=== PATIENT | female | born 1950 | race African-American/Black ===

== ENCOUNTER 2021-10-29 14:19 | Emergency (ER) | payer MEDICARE ==
[~2021-10-29] VITALS: Ht 157 cm; Wt 91.0 kg
--- NOTE | 2021-10-29 14:55 | ED General ---
General Chief Complaint: Medical Screening Exam Stated Complaint: AMS - POSSIBLE STOKE Source of Information: Patient, Family (granddaughter) Exam Limitations: Physical Impairments (dementia) History of Present Illness Date Seen by Provider: Oct 29, 2021 Time Seen by Provider: 14:30 Initial Comments Patient is here visiting her granddaughter from [facility]. She did not bring her medications. She has a history of dementia. Granddaughter is present for HPI, review of systems, past medical family and social history. Granddaughter states that her grandmother is at her normal mental baseline. She has not had any recent complaints of illness. No COVID concerns, she is COVID vaccinated. She has not eaten today and states that she is really not hungry. She denies diarrhea or dysuria. No shortness of breath or swelling. They are basically here just for refill of her medications. She feels that [facility] in [place]. She is on Lantus 14 units a day, metformin 500 mg twice daily, atorvastatin 40 mg daily. She also has a picture of a prescription bottle of lisinopril hydrochlorothiazide but I am unable to see the milligrams strength. I did call Laureen here locally in [place] and have them access the [employer] system but they could not find a lisinopril hydrochlorothiazide prescription. I am going to go ahead and put her on the lowest dose of hydrochlorothiazide. Granddaughter is happy with this. Grandmother does at 1 point state that "I have a snake in my belly" and she tells me "my brother put it in there a long time ago and I need to have an x-ray of it". She also states "I need to get it out". I did inquire of the granddaughter if this is normal behavior and she states yes, indeed it is normal behavior. Associated Systoms: Denies Symptoms Allergies and Home Medications Patient Home Medication List Home Medication List Reviewed: Yes Review of Systems Review of Systems Constitutional: see HPI EENTM: no symptoms reported Respiratory: no symptoms reported Cardiovascular: no symptoms reported Gastrointestinal: other ("snake in my belly") Genitourinary: no symptoms reported Musculoskeletal: no symptoms reported Skin: no symptoms reported All Other Systems Reviewed Negative Unless Noted: Yes Past Tmzvpme-Wmgzdf-Qxqwhi Hx Immunizations Up To Date Influenza Vaccine Up-to-Date: Yes; Up-to-Date Physical Exam Vital Signs Vital Signs - First Documented 10/29/21 14:24 Temp 36.3 Pulse 75 Resp 18 Pulse Ox 98 O2 Delivery Room Air Capillary Refill : Height, Weight, BMI Height: '" Weight: lbs. oz. kg; BMI Method: General Appearance: No Apparent Distress, WD/WN Eyes: Bilateral Eye Normal Inspection, Bilateral Eye PERRL, Bilateral Eye EOMI Neck: Normal Inspection Respiratory: Lungs Clear, Normal Breath Sounds, No Accessory Muscle Use, No Respiratory Distress Cardiovascular: Regular Rate, Rhythm Gastrointestinal: Normal Bowel Sounds, Non Tender, Soft Extremity: Normal Capillary Refill, Normal Inspection, Normal Range of Motion Neurologic/Psychiatric: Alert, No Motor/Sensory Deficits, Normal Mood/Affect Skin: Normal Color, Warm/Dry Progress/Results/Core Measures Suspected Sepsis SIRS Temperature: Pulse: Respiratory Rate: Blood Pressure / Mean: Results/Orders Lab Results Laboratory Tests Test 10/29/21 14:27 Range/Units Glucometer 107 70-110 MG/DL My Orders Orders - NGHIA PARK MD Accucheck Stat ONCE (10/29/21 14:57) Vital Signs/I&O 10/29/21 14:24 Temp 36.3 Pulse 75 Resp 18 B/P (MAP) Pulse Ox 98 O2 Delivery Room Air Capillary Refill : Point of Care Testing Finger Stick Blood Glucose: 107 Departure Impression Primary Impression: Medication refill Disposition: 01 HOME, SELF-CARE Condition: Stable Departure-Patient Inst. Referrals: [facility],LOCAL PHYSICIAN (PCP) Primary Care Physician Patient Instructions: NO INSTRUCTIONS GIVEN Add. Discharge Instructions: I have refilled your prescriptions for Lantus insulin, metformin, atorvastatin and your blood pressure pill. Please take these as instructed on the bottle. Please return to the emergency department for any new, concerning or emergent complaints. Scripts Lisinopril/Hydrochlorothiazide (Lisinopril-Hctz 10-12.5 mg Tab) 10 Mg-12.5 Mg Tablet 1 EACH PO DAILY for 30 Days, #30 TAB 1 Refill Prov: NGHIA PARK MD 10/29/21 Atorvastatin Calcium (Atorvastatin Calcium) 40 Mg Tablet 40 MG PO DAILY for 30 Days, #30 TAB 1 Refill Prov: NGHIA PARK MD 10/29/21 Metformin HCl (Metformin HCl) 500 Mg Tablet 500 MG PO BID, #60 TAB 1 Refill Prov: NGHIA PARK MD 10/29/21 Insulin Glargine,Hum.rec.anlog (Lantus) 100 Unit/Ml Vial 14 UNIT SQ DAILY for 30 Days, #1 EA 1 Refill Prov: NGHIA PARK MD 10/29/21 NGHIA PARK MD Oct 29, 2021 14:55
[2021-10-29] MEDS ORDERED: ATOR40TA70 PO (15:04)
[2021-10-29] MEDS ORDERED: LISI1TAB44 PO (15:04)
[2021-10-29] MEDS ORDERED: INSU100V6 SQ (15:04)
[2021-10-29] MEDS ORDERED: METF-397 PO (15:04)
[2021-10-29 15:40] VITALS: BP 147/84
== END 2021-10-29 15:42 | disposition home or self-care (01) ==
LOC: ER 14:23
DX: Z76.0 Encounter for issue of repeat prescription (principal); Z79.84 Long term (current) use of oral hypoglycemic drugs; Z79.899 Other long term (current) drug therapy
CPT/HCPCS: 82947

== ENCOUNTER 2021-11-01 11:24 | Emergency (ER) | payer MEDICARE ==
[~2021-11-01] VITALS: Ht 157.4 cm; Wt 90.7 kg
[~2021-11-01 11:24] MED LIST: ATOR40TA70 PO; INSU100V6 SQ; LISI1TAB44 PO; METF-397 PO
--- NOTE | 2021-11-01 11:49 | ED GU-Female ---
General Chief Complaint: - Reproductive Stated Complaint: BURNING WITH URINATION Nursing Triage Note: PT AMB TO RM 8 WITH GRANDDAUGHTER. PTS GRANDDAUGTHER STATED THAT SHE WAS HAVING DIFFICULTY URINATING AND FREQUENCY THAT STARTED A COUPLE DAYS AGO. Source: patient Exam Limitations: no limitations History of Present Illness Date Seen by Provider: Nov 01, 2021 Time Seen by Provider: 11:46 Initial Comments Patient is a 70-year-old female with a history of diabetes, stroke, COPD presents to ED for difficulty urinating with increased urine frequency. Daughter at bedside noted a odor to her urine. She does have a history of dementia and bipolar. She believes she is at her current baseline. She appears slightly confused and states that she has a snake in her body that she wants out. She denies of any chest pain, vomiting, diarrhea, fever, chills, increased confusion. She does report some abdominal discomfort on arrival. Daughter requesting a DuoNeb breathing machine for at home as hers did break. She is also requesting canisters for her COPD Allergies and Home Medications Allergies Coded Allergies: No Known Drug Allergies (Unverified , 11/01/21) Patient Home Medication List Home Medication List Reviewed: Yes Atorvastatin Calcium (Atorvastatin Calcium) 40 Mg Tablet, 40 MG PO DAILY Prescribed by: NGHIA PARK on 10/29/21 1504 Fluconazole (Diflucan) 150 Mg Tablet, 150 MG PO ONCE Prescribed by: MARIAN ARIAS on 11/01/21 1305 Insulin Glargine,Hum.rec.anlog (Lantus) 100 Unit/Ml Vial, 14 UNIT SQ DAILY Prescribed by: NGHIA PARK on 10/29/21 1504 Ipratropium/Albuterol Sulfate (Iprat-Albut 0.5-3(2.5) mg/3 ml) 0.5 Mg-3 Mg (2.5 Mg Base)/3 Ml Ampul.neb, 3 ML IH Q4H PRN for SHORTNESS OF BREATH Prescribed by: MARIAN ARIAS on 11/01/21 1305 Lisinopril/Hydrochlorothiazide (Lisinopril-Hctz 10-12.5 mg Tab) 10 Mg-12.5 Mg Tablet, 1 EACH PO DAILY Prescribed by: NGHIA PARK on 10/29/21 1504 Metformin HCl (Metformin HCl) 500 Mg Tablet, 500 MG PO BID Prescribed by: NGHIA PARK on 10/29/21 1504 Review of Systems Review of Systems Constitutional: No chills, No diaphoresis, No malaise, No weakness EENTM: No blurred vision, No double vision, No mouth pain, No mouth swelling Respiratory: No cough, No dyspnea on exertion, No short of breath, No wheezing Cardiovascular: No chest pain, No edema Gastrointestinal: abdominal pain; No diarrhea, No nausea, No vomiting Genitourinary: burning, frequency, other (Odor) Musculoskeletal: No back pain, No joint pain Skin: No change in color, No change in hair/nails Psychiatric/Neurological: Other (Confusion) Past Ecuanaw-Ulrbwk-Vutgof Hx Patient Social History Tobacco Use?: No Smoking Status: Former Smoker Substance use?: No Alcohol Use?: No Pt feels they are or have been: Unable to obtain Immunizations Up To Date Influenza Vaccine Up-to-Date: Yes; Up-to-Date Physical Exam Vital Signs Vital Signs - First Documented 11/01/21 11:31 Temp 36.2 Pulse 77 Resp 14 B/P (MAP) 187/116 (139) Pulse Ox 95 Capillary Refill : Less Than 3 Seconds Height, Weight, BMI Height: '" Weight: lbs. oz. kg; 36.00 BMI Method: General Appearance: WD/WN, no apparent distress HEENT: PERRL/EOMI, normal ENT inspection, TMs normal, pharynx normal Neck: non-tender, full range of motion, supple, normal inspection Cardiovascular: regular rate, rhythm, no edema, no gallop, no JVD Respiratory: chest non-tender, lungs clear, normal breath sounds, no respiratory distress, no accessory muscle use Gastrointestinal: normal bowel sounds, non tender, soft, no organomegaly Back: normal inspection, no CVA tenderness, no vertebral tenderness Extremities: normal range of motion, non-tender, normal inspection, no pedal edema Neurologic/Psychiatric: residential sales II-XII nml as tested, no motor/sensory deficits, other (Disoriented X 2) Skin: normal color, warm/dry Progress/Results/Core Measures Suspected Sepsis SIRS Temperature: Pulse: 77 Respiratory Rate: 14 Blood Pressure 187 /116 Mean: 139 Results/Orders Lab Results Laboratory Tests Test 11/01/21 12:48 Range/Units Urine Color YELLOW Urine Clarity CLEAR Urine pH 5.5 5-9 Urine Specific [place] 1.015 L 1.016-1.022 Urine Protein NEGATIVE NEGATIVE Urine Glucose (UA) NEGATIVE NEGATIVE Urine Ketones NEGATIVE NEGATIVE Urine Nitrite NEGATIVE NEGATIVE Urine Bilirubin NEGATIVE NEGATIVE Urine Urobilinogen 0.2 < = 1.0 MG/DL Urine Leukocyte Esterase NEGATIVE NEGATIVE Urine RBC (Auto) TRACE-L H NEGATIVE Urine RBC RARE /HPF Urine WBC RARE /HPF Urine Squamous Epithelial Cells 0-2 /HPF Urine Crystals PRESENT H /LPF Urine Amorphous Sediment RARE RUTHANN URATES H /LPF Urine Bacteria NEGATIVE /HPF Urine Casts NONE /LPF Urine Mucus NEGATIVE /LPF Urine Culture Indicated NO My Orders Orders - KEYSHA FLORES Urinalysis (11/01/21 11:25) Vital Signs/I&O 11/01/21 11:31 Temp 36.2 Pulse 77 Resp 14 B/P (MAP) 187/116 (139) Pulse Ox 95 Capillary Refill : Less Than 3 Seconds Blood Pressure Mean: 139 Departure Communication (PCP) Patient presents ED with daughter concern for UTI or yeast infection. No vaginal discharge or vaginal itching. Urinalysis without strong evidence of UTI. History of yeast secondary to her diabetes. Will discharge 1 dose with oral Diflucan. Discussed [id number] topical monistat if continued presentation of symptoms. She is requesting DuoNeb canisters as well as a new nebulizer machine. This was provided. Outpatient follow-up with her primary care physician. She does not appear toxic. No increased confusion. She does have a history of dementia and bipolar and daughter states she is at her current baseline. She has no other complaints. Return precaution were discussed with daughter. Impression Primary Impression: Medication refill Disposition: 01 HOME, SELF-CARE Condition: Stable Departure-Patient Inst. Decision time for Depature: 13:04 Referrals: [facility] [place] RODRIGO,LOCAL PHYSICIAN (PCP) Primary Care Physician Patient Instructions: Yeast Infection (DC) Scripts Fluconazole (Diflucan) 150 Mg Tablet 150 MG PO ONCE, #1 TAB Prov: KEYSHA FLORES 11/01/21 Ipratropium/Albuterol Sulfate (Iprat-Albut 0.5-3(2.5) mg/3 ml) 0.5 Mg-3 Mg (2.5 Mg Base)/3 Ml Ampul.neb 3 ML IH Q4H PRN for SHORTNESS OF BREATH, #30 EACH Prov: KEYSHA FLORES 11/01/21 KEYSHA FLORES Nov 01, 2021 11:49
[2021-11-01 12:55] LABS: BILIRUBIN,URINE NEGATIVE (NEGATIVE); CLARITY,URINE CLEAR; COLOR,URINE YELLOW; GLUCOSE, URINE (UA) NEGATIVE (NEGATIVE); KETONES,URINE NEGATIVE (NEGATIVE); LEUKOCYTE ESTERASE ,URINE NEGATIVE (NEGATIVE); NITRITE,URINE NEGATIVE (NEGATIVE); PH,URINE 5.5 (5-9); PROTEIN,URINE NEGATIVE (NEGATIVE)
[2021-11-01 13:01] LABS: RBC,URINE RARE /HPF; WBC,URINE RARE /HPF
[2021-11-01 13:02] LABS: AMORPHOUS SEDIMENT,UR RARE AMOR URATES /LPF; BACTERIA,URINE NEGATIVE /HPF; SQUAMOUS EPITHELIAL CELL,UR 0-2 /HPF
[2021-11-01] MEDS ORDERED: IPRA3AMP31 IH (13:05)
[2021-11-01] MEDS ORDERED: FLUC150T PO (13:05)
[2021-11-01 13:15] VITALS: BP 165/81
== END 2021-11-01 13:15 | disposition home or self-care (01) ==
LOC: EDUNIT# 11:24 → ER 11:25
DX: Z76.0 Encounter for issue of repeat prescription (principal); J44.9 Chronic obstructive pulmonary disease, unspecified; Z87.891 Personal history of nicotine dependence; Z99.89 Dependence on other enabling machines and devices
CPT/HCPCS: 81000; 99281

== ENCOUNTER 2021-12-06 11:18 | Emergency (ER) | payer MEDICARE ==
[~2021-12-06] VITALS: Ht 157 cm; Wt 91.0 kg
[~2021-12-06 11:18] MED LIST changes: +FLUC150T PO; +IPRA3AMP31 IH
--- NOTE | 2021-12-06 12:24 | ED General ---
General Chief Complaint: General Problems/Pain Stated Complaint: PSYCH EVAL/NEEDS MEDS Nursing Triage Note: PT AMB TO FT1 W GRAND DAUGHTER WHO PT LIVES WITH. GRAND DAUGHTER STATES PT HAS INCREASING CONFUSION, NOT SLEEPING AT NIGHT FOR SEVERAL DAYS, DECREASING COOPERATION. PT HAS HAD RECENT STROKE APPROX 3 MONTHS AGO, PT HAS RECENTLY MOVED TO [facility] FROM [place] TO STAY W GRAND DAUGHTER. PT IS IDDM, HAS ASHTMA, STROKES X3, DEMENTIA, HTN AND DEMENTIA. PT STATES DOES NOT KNOW WHY SHE IS HERE. DOES NOT UNDERSTAND WHY SHE IS HERE FOR EVALUATION. PT DOES HAVE PERSISTANT COUGH AND CONGESTION Source of Information: Patient Exam Limitations: No Limitations History of Present Illness Date Seen by Provider: Dec 06, 2021 Time Seen by Provider: 12:22 Initial Comments This is a 71-year-old female who presented to the ER with her granddaughter for increasing confusion, physical aggression, insomnia, paranoid delusions that her granddaughter's boyfriend is "watching her" and's "touching her". Granddaughter states that her boyfriend is at work on 12 hour shifts and not at home when patient is making complaints. Allergies and Home Medications Allergies Coded Allergies: No Known Drug Allergies (Unverified , 11/01/21) Patient Home Medication List Atorvastatin Calcium (Atorvastatin Calcium) 40 Mg Tablet, 40 MG PO DAILY Prescribed by: NGHIA PARK on 10/29/21 1504 Fluconazole (Diflucan) 150 Mg Tablet, 150 MG PO ONCE Prescribed by: MARIAN ARIAS on 11/01/21 1305 Insulin Glargine,Hum.rec.anlog (Lantus) 100 Unit/Ml Vial, 14 UNIT SQ DAILY Prescribed by: NGHIA PARK on 10/29/21 1504 Ipratropium/Albuterol Sulfate (Iprat-Albut 0.5-3(2.5) mg/3 ml) 0.5 Mg-3 Mg (2.5 Mg Base)/3 Ml Ampul.neb, 3 ML IH Q4H PRN for SHORTNESS OF BREATH Prescribed by: MARIAN ARIAS on 11/01/21 1305 Lisinopril/Hydrochlorothiazide (Lisinopril-Hctz 10-12.5 mg Tab) 10 Mg-12.5 Mg Tablet, 1 EACH PO DAILY Prescribed by: NGHIA PARK on 10/29/21 1504 Metformin HCl (Metformin HCl) 500 Mg Tablet, 500 MG PO BID Prescribed by: NGHIA PARK on 10/29/21 1504 Past Lzunmgg-Rbalvs-Bkfmzu Hx Patient Social History Tobacco Use?: No Substance use?: No Alcohol Use?: No Pt feels they are or have been: No Immunizations Up To Date First/Initial COVID19 Vaccinat: 2020 Second COVID19 Vaccination Christian: 2020 Past Medical History Surgery/Hospitalization HX: ABD SURG, IDDM, HTN, ASTHMA, RECENT STROKE IN SEPTEMBER. DEMENTIA, SCHIZOPHRENIA Physical Exam Vital Signs Vital Signs - First Documented 12/06/21 11:25 Temp 36.6 Pulse 77 Resp 19 B/P (MAP) 165/75 (105) Pulse Ox 97 Capillary Refill : Less Than 3 Seconds Height, Weight, BMI Height: '" Weight: lbs. oz. kg; 36.00 BMI Method: Progress/Results/Core Measures Suspected Sepsis SIRS Temperature: Pulse: 77 Respiratory Rate: 19 Laboratory Tests 12/06/21 12:25: White Blood Count 8.8 Blood Pressure 165 /75 Mean: 105 Laboratory Tests 12/06/21 12:25: Creatinine 0.89, Platelet Count 207, Total Bilirubin 1.1H Results/Orders Lab Results Laboratory Tests Test 12/06/21 12:25 12/06/21 12:26 12/06/21 12:36 Range/Units White Blood Count 8.8 4.3-11.0 10^3/uL Red Blood Count 4.03 3.80-5.11 10^6/uL Hemoglobin 11.8 11.5-16.0 g/dL Hematocrit 37 35-52 % Mean Corpuscular Volume 93 80-99 fL Mean Corpuscular Hemoglobin 29 25-34 pg Mean Corpuscular Hemoglobin Concent 32 32-36 g/dL Red Cell Distribution Width 14.7 H 10.0-14.5 % Platelet Count 207 130-400 10^3/uL Mean Platelet Volume 10.7 9.0-12.2 fL Immature Granulocyte % (Auto) 0 % Neutrophils (%) (Auto) 66 42-75 % Lymphocytes (%) (Auto) 22 12-44 % Monocytes (%) (Auto) 5 0-12 % Eosinophils (%) (Auto) 6 0-10 % Basophils (%) (Auto) 0 0-10 % Neutrophils # (Auto) 5.8 1.8-7.8 10^3/uL Lymphocytes # (Auto) 1.9 1.0-4.0 10^3/uL Monocytes # (Auto) 0.5 0.0-1.0 10^3/uL Eosinophils # (Auto) 0.5 H 0.0-0.3 10^3/uL Basophils # (Auto) 0.0 0.0-0.1 10^3/uL Immature Granulocyte # (Auto) 0.0 0.0-0.1 10^3/uL Sodium Level 142 135-145 MMOL/L Potassium Level 4.1 3.6-5.0 MMOL/L Chloride Level 106 98-107 MMOL/L Carbon Dioxide Level 26 21-32 MMOL/L Anion Gap 10 5-14 MMOL/L Blood Urea Nitrogen 22 H 7-18 MG/DL Creatinine 0.89 0.60-1.30 MG/DL Estimat Glomerular Filtration Rate 68 BUN/Creatinine Ratio 25 Glucose Level 146 H 70-105 MG/DL Calcium Level 9.0 8.5-10.1 MG/DL Corrected Calcium 9.2 8.5-10.1 MG/DL Total Bilirubin 1.1 H 0.1-1.0 MG/DL Aspartate Amino Transf (AST/SGOT) 57 H 5-34 U/L Alanine Aminotransferase (ALT/SGPT) 70 H 0-55 U/L Alkaline Phosphatase 148 H 40-136 U/L Total Protein 7.3 6.4-8.2 GM/DL Albumin 3.7 3.2-4.5 GM/DL TSH Emery Testing 0.44 0.35-4.94 UIU/ML Salicylates Level < 5.0 L 5.0-20.0 MG/DL Acetaminophen Level < 10 L 10-30 UG/ML Serum Alcohol < 10 <10 MG/DL Influenza Type A (RT-PCR) Not Detected Not Detecte Influenza Type B (RT-PCR) Not Detected Not Detecte SARS-CoV-2 RNA (RT-PCR) Not Detected Not Detecte Urine Color YELLOW Urine Clarity CLEAR Urine pH 5.0 5-9 Urine Specific [place] >=1.030 1.016-1.022 Urine Protein NEGATIVE NEGATIVE Urine Glucose (UA) NEGATIVE NEGATIVE Urine Ketones NEGATIVE NEGATIVE Urine Nitrite NEGATIVE NEGATIVE Urine Bilirubin NEGATIVE NEGATIVE Urine Urobilinogen 0.2 < = 1.0 MG/DL Urine Leukocyte Esterase NEGATIVE NEGATIVE Urine RBC (Auto) NEGATIVE NEGATIVE Urine RBC NONE /HPF Urine WBC 0-2 /HPF Urine Squamous Epithelial Cells 5-10 /HPF Urine Crystals NONE /LPF Urine Bacteria TRACE /HPF Urine Casts NONE /LPF Urine Mucus NEGATIVE /LPF Urine Culture Indicated NO Urine Opiates Screen NEGATIVE NEGATIVE Urine Oxycodone Screen NEGATIVE NEGATIVE Urine Methadone Screen NEGATIVE NEGATIVE Urine Propoxyphene Screen NEGATIVE NEGATIVE Urine Barbiturates Screen NEGATIVE NEGATIVE Ur Tricyclic Antidepressants Screen NEGATIVE NEGATIVE Urine Phencyclidine Screen NEGATIVE NEGATIVE Urine Amphetamines Screen NEGATIVE NEGATIVE Urine Methamphetamines Screen NEGATIVE NEGATIVE Urine Benzodiazepines Screen NEGATIVE NEGATIVE Urine Cocaine Screen NEGATIVE NEGATIVE Urine Cannabinoids Screen NEGATIVE NEGATIVE My Orders Orders - SHIREEN HERRERA MEDICAL BILLING ASSOCIATE Ua Culture If Indicated (12/06/21 11:59) Cbc With Automated Diff (12/06/21 11:59) Comprehensive Metabolic Panel (12/06/21 11:59) Alcohol (12/06/21 11:59) Drug Screen Stat (Urine) (12/06/21 11:59) Acetaminophen (12/06/21 11:59) Salicylate (12/06/21 11:59) Ekg Tracing (12/06/21 11:59) Thyroid Analyzer (12/06/21 11:59) Covid 19 Inhouse Test (12/06/21 11:59) Influenza A And B By Pcr (12/06/21 11:59) Humerus, Right, 2 Views (12/06/21 12:18) Vital Signs/I&O 12/06/21 11:25 Temp 36.6 Pulse 77 Resp 19 B/P (MAP) 165/75 (105) Pulse Ox 97 Capillary Refill : Less Than 3 Seconds Blood Pressure Mean: 105 Departure Impression Primary Impression: Dementia with behavioral disturbance Additional Impressions: Paranoid delusion Tactile hallucination Departure-Patient Inst. Decision time for Depature: 13:35 Referrals: NO,LOCAL PHYSICIAN (PCP/Family) Primary Care Physician Patient Instructions: Dementia (DC) Add. Discharge Instructions: Plan: 1. Follow-up with [facility] behavioral health tomorrow. You will call [phone] and speak with someone about intake. 2. We will plan for you to set up a place and time to have patient screened for inpatient geriatric behavioral health. 3. May trial Melatonin 5 mg by mouth around dinnertime to see if this will improve some of her insomnia this evening. May also give her Tylenol PM at bedtime. 4. You have been given copies of your labs and imaging from this ER visit. You will need to take copies of your medical DPOA as well as insurance cards and licensing ID with you to your appointment tomorrow. 5. If you have any new, concerning, worsening symptoms before your follow-up please return to the ER. All discharge instructions reviewed with patient and/or family. Voiced understanding. SHIREEN HERRERA MEDICAL BILLING ASSOCIATE Dec 06, 2021 12:24
[2021-12-06 12:32] LABS: BASOPHILS % (AUTO) 0 % (0-10); EOSINOPHILS # (AUTO) 0.5 10^3/uL (0.0-0.3); EOSINOPHILS % (AUTO) 6 % (0-10); HEMATOCRIT 37 % (35-52); HEMOGLOBIN 11.8 g/dL (11.5-16.0); LYMPHOCYTES # (AUTO) 1.9 10^3/uL (1.0-4.0); LYMPHOCYTES % (AUTO) 22 % (12-44); MEAN CORPUSCULAR HEMOGLOBIN 29 pg (25-34); MEAN CORPUSCULAR HGB CONC 32 g/dL (32-36); MEAN CORPUSCULAR VOLUME 93 fL (80-99); MEAN PLATELET VOLUME 10.7 fL (9.0-12.2); MONOCYTES # (AUTO) 0.5 10^3/uL (0.0-1.0); MONOCYTES % (AUTO) 5 % (0-12); NEUTROPHILS # (AUTO) 5.8 10^3/uL (1.8-7.8); NEUTROPHILS % (AUTO) 66 % (42-75); PLATELET COUNT 207 10^3/uL (130-400); WHITE BLOOD COUNT 8.8 10^3/uL (4.3-11.0)
[2021-12-06 12:41] LABS: BILIRUBIN,URINE NEGATIVE (NEGATIVE); CLARITY,URINE CLEAR; COLOR,URINE YELLOW; GLUCOSE, URINE (UA) NEGATIVE (NEGATIVE); KETONES,URINE NEGATIVE (NEGATIVE); LEUKOCYTE ESTERASE ,URINE NEGATIVE (NEGATIVE); NITRITE,URINE NEGATIVE (NEGATIVE); PROTEIN,URINE NEGATIVE (NEGATIVE)
[2021-12-06 12:46] LABS: CHLORIDE 106 MMOL/L (98-107); POTASSIUM 4.1 MMOL/L (3.6-5.0); SODIUM 142 MMOL/L (135-145)
[2021-12-06 12:47] LABS: BACTERIA,URINE TRACE /HPF; WBC,URINE 0-2 /HPF
[2021-12-06 12:47] LABS: ALBUMIN 3.7 GM/DL (3.2-4.5)
[2021-12-06 12:49] LABS: GLUCOSE 146 MG/DL (70-105); TOTAL PROTEIN 7.3 GM/DL (6.4-8.2)
[2021-12-06 12:50] LABS: CARBON DIOXIDE 26 MMOL/L (21-32)
[2021-12-06 12:51] LABS: BILIRUBIN,TOTAL 1.1 MG/DL (0.1-1.0)
[2021-12-06 12:53] LABS: ALKALINE PHOSPHATASE 148 U/L (40-136); CREATININE SERUM 0.89 MG/DL (0.60-1.30); GFR ESTIMATED 68
[2021-12-06 12:54] LABS: AMPHETAMINE SCREEN, URINE NEGATIVE (NEGATIVE); BARBITURATE SCREEN URINE NEGATIVE (NEGATIVE); BENZODIAZEPINES SCREEN URINE NEGATIVE (NEGATIVE); CANNABINOID SCREEN, URINE NEGATIVE (NEGATIVE); COCAINE SCREEN URINE NEGATIVE (NEGATIVE); METHADONE STAT NEGATIVE (NEGATIVE); OPIATE SCREEN URINE NEGATIVE (NEGATIVE); OXYCODONE STAT NEGATIVE (NEGATIVE); PROPOXYPHENE STAT NEGATIVE (NEGATIVE); TRICYCLIC ANTIDEPRESSANTS SCRE NEGATIVE (NEGATIVE)
[2021-12-06 12:54] LABS: BUN/CREATININE RATIO 25
[2021-12-06 12:56] LABS: ALANINE AMINOTRANSFERASE 70 U/L (0-55); SALICYLATE < 5.0 MG/DL (5.0-20.0)
[2021-12-06 13:01] LABS: ACETAMINOPHEN < 10 UG/ML (10-30)
--- NOTE | 2021-12-06 13:26 | Diagnostic Imaging Report ---
INDICATION: No known injury, pain. EXAMINATION: Right humerus 12/06/2021. FINDINGS: 2 views of the humerus demonstrate no evidence for fracture or dislocations. Joint spaces maintained. Narrowing and spurring noted at the acromioclavicular joint. Soft tissues unremarkable. IMPRESSION: 1. No acute osseous of abnormality. Dictated by: Dictated on workstation # [id number]
[2021-12-06 13:45] VITALS: BP 145/75
== END 2021-12-06 13:46 | disposition home or self-care (01) ==
LOC: EDUNIT# 11:18 → ER 11:21
DX: F03.91 Unspecified dementia, unspecified severity, with behavioral disturbance (principal); F20.0 Paranoid schizophrenia; Z20.822 Contact with and (suspected) exposure to COVID-19
CPT/HCPCS: 73060; 80053; 80306; 81000; 84443; 85025; 87636; 93005; 99283; G0480 ×3; 36415; 80320; 80329

== ENCOUNTER 2022-01-17 16:03 | Emergency (ER) | payer MEDICARE, MEDICAID ==
[~2022-01-17] VITALS: Ht 157.2 cm; Wt 90.7 kg
--- NOTE | 2022-01-17 16:09 | ED General ---
General Stated Complaint: POSS STROKE Source of Information: Patient Exam Limitations: No Limitations History of Present Illness Date Seen by Provider: Jan 17, 2022 Time Seen by Provider: 15:51 Initial Comments 71-year-old female presents the emergency department today via ambulance. EMS reports the patient states that she was riding in the passenger seat of the vehicle and her left face felt cold. The window was open. She stated when she got into the ambulance her face warmed up and is no longer cold. The patient on arrival does seem a bit confused and tells me the same story. She also tells me her upper lip was swollen at the time and that her legs were shaking bilaterally. She does tell me that she felt like her tongue was heavy during this time which was causing a little bit of difficulty speaking. She does state that she has had some right jaw pain recently from some dental issues. She has history of diabetes mellitus and her blood sugar in route was 231. She states she feels back to normal now. Allergies and Home Medications Allergies Coded Allergies: No Known Drug Allergies (Unverified , 11/01/21) Patient Home Medication List Home Medication List Reviewed: Yes Atorvastatin Calcium (Atorvastatin Calcium) 40 Mg Tablet, 40 MG PO DAILY Prescribed by: NGHIA PARK on 10/29/21 1504 Fluconazole (Diflucan) 150 Mg Tablet, 150 MG PO ONCE Prescribed by: MARIAN ARIAS on 11/01/21 1305 Insulin Glargine,Hum.rec.anlog (Lantus) 100 Unit/Ml Vial, 14 UNIT SQ DAILY Prescribed by: NGHIA PARK on 10/29/21 1504 Ipratropium/Albuterol Sulfate (Iprat-Albut 0.5-3(2.5) mg/3 ml) 0.5 Mg-3 Mg (2.5 Mg Base)/3 Ml Ampul.neb, 3 ML IH Q4H PRN for SHORTNESS OF BREATH Prescribed by: MARIAN ARIAS on 11/01/21 1305 Lisinopril/Hydrochlorothiazide (Lisinopril-Hctz 10-12.5 mg Tab) 10 Mg-12.5 Mg Tablet, 1 EACH PO DAILY Prescribed by: NGHIA PARK on 10/29/21 1504 Metformin HCl (Metformin HCl) 500 Mg Tablet, 500 MG PO BID Prescribed by: NGHIA PARK on 10/29/21 1504 Review of Systems Review of Systems Constitutional: no symptoms reported EENTM: no symptoms reported Respiratory: no symptoms reported Cardiovascular: no symptoms reported Gastrointestinal: no symptoms reported Genitourinary: no symptoms reported Musculoskeletal: no symptoms reported Skin: no symptoms reported Psychiatric/Neurological: No Symptoms Reported Hematologic/Lymphatic: No Symptoms Reported Immunological/Allergic: no symptoms reported Past Sehohig-Cvekez-Vinkew Hx Patient Social History Tobacco Use?: No Use of E-Cig and/or Vaping dev: No Substance use?: No Alcohol Use?: No Immunizations Up To Date First/Initial COVID19 Vaccinat: 2020 Second COVID19 Vaccination Christian: 2020 Past Medical History Surgery/Hospitalization HX: ABD SURG, IDDM, HTN, ASTHMA, RECENT STROKE IN SEPTEMBER. DEMENTIA, SCHIZOPHRENIA Family Medical History Reviewed Nursing Family Hx No Pertinent Family Hx Physical Exam Vital Signs Vital Signs - First Documented 01/17/22 16:03 Pulse 85 B/P (MAP) 154/90 (111) Pulse Ox 96 O2 Delivery Room Air Capillary Refill : Height, Weight, BMI Height: '" Weight: lbs. oz. kg; 36.00 BMI Method: General Appearance: No Apparent Distress, WD/WN HEENT: Normal ENT Inspection, Pharynx Normal Neck: Full Range of Motion, Normal Inspection, Non Tender, Supple Respiratory: Chest Non Tender, Lungs Clear, Normal Breath Sounds, No Accessory Muscle Use, No Respiratory Distress Cardiovascular: Regular Rate, Rhythm, No Edema, No Gallop, No JVD, No Murmur, Normal Peripheral Pulses Gastrointestinal: Normal Bowel Sounds, No Organomegaly, No Pulsatile Mass, Non Tender, Soft Extremity: Normal Capillary Refill, Normal Inspection, Normal Range of Motion, Non Tender, No Calf Tenderness, No Pedal Edema Neurologic/Psychiatric: Alert, Oriented x3, No Motor/Sensory Deficits, Normal Mood/Affect, can patcher II-XII Norm as Tested Skin: Normal Color, Warm/Dry Lymphatic: No Adenopathy Progress/Results/Core Measures Suspected Sepsis SIRS Temperature: Pulse: Respiratory Rate: Laboratory Tests 01/17/22 16:00: White Blood Count 8.2 Blood Pressure / Mean: Laboratory Tests 01/17/22 16:00: Creatinine 0.93, INR Comment 1.1, Platelet Count 205, Total Bilirubin 1.8H Results/Orders Lab Results Laboratory Tests Test 01/17/22 16:00 01/17/22 16:25 Range/Units White Blood Count 8.2 4.3-11.0 10^3/uL Red Blood Count 3.75 L 3.80-5.11 10^6/uL Hemoglobin 11.5 11.5-16.0 g/dL Hematocrit 36 35-52 % Mean Corpuscular Volume 95 80-99 fL Mean Corpuscular Hemoglobin 31 25-34 pg Mean Corpuscular Hemoglobin Concent 32 32-36 g/dL Red Cell Distribution Width 15.5 H 10.0-14.5 % Platelet Count 205 130-400 10^3/uL Mean Platelet Volume 10.1 9.0-12.2 fL Immature Granulocyte % (Auto) 1 % Neutrophils (%) (Auto) 74 42-75 % Lymphocytes (%) (Auto) 17 12-44 % Monocytes (%) (Auto) 5 0-12 % Eosinophils (%) (Auto) 3 0-10 % Basophils (%) (Auto) 0 0-10 % Neutrophils # (Auto) 6.0 1.8-7.8 10^3/uL Lymphocytes # (Auto) 1.4 1.0-4.0 10^3/uL Monocytes # (Auto) 0.4 0.0-1.0 10^3/uL Eosinophils # (Auto) 0.3 0.0-0.3 10^3/uL Basophils # (Auto) 0.0 0.0-0.1 10^3/uL Immature Granulocyte # (Auto) 0.0 0.0-0.1 10^3/uL Prothrombin Time 14.7 12.2-14.7 SEC INR Comment 1.1 0.8-1.4 Sodium Level 142 135-145 MMOL/L Potassium Level 3.2 L 3.6-5.0 MMOL/L Chloride Level 105 98-107 MMOL/L Carbon Dioxide Level 28 21-32 MMOL/L Anion Gap 9 5-14 MMOL/L Blood Urea Nitrogen 16 7-18 MG/DL Creatinine 0.93 0.60-1.30 MG/DL Estimat Glomerular Filtration Rate 65 BUN/Creatinine Ratio 17 Glucose Level 221 H 70-105 MG/DL Calcium Level 8.9 8.5-10.1 MG/DL Corrected Calcium 9.1 8.5-10.1 MG/DL Total Bilirubin 1.8 H 0.1-1.0 MG/DL Aspartate Amino Transf (AST/SGOT) 21 5-34 U/L Alanine Aminotransferase (ALT/SGPT) 26 0-55 U/L Alkaline Phosphatase 99 40-136 U/L Total Protein 7.1 6.4-8.2 GM/DL Albumin 3.7 3.2-4.5 GM/DL Serum Alcohol < 10 <10 MG/DL Urine Color YELLOW Urine Clarity CLEAR Urine pH 5.5 5-9 Urine Specific [place] >=1.030 1.016-1.022 Urine Protein 1+ H NEGATIVE Urine Glucose (UA) NEGATIVE NEGATIVE Urine Ketones NEGATIVE NEGATIVE Urine Nitrite NEGATIVE NEGATIVE Urine Bilirubin NEGATIVE NEGATIVE Urine Urobilinogen 0.2 < = 1.0 MG/DL Urine Leukocyte Esterase NEGATIVE NEGATIVE Urine RBC (Auto) TRACE-I H NEGATIVE Urine RBC NONE /HPF Urine WBC RARE /HPF Urine Squamous Epithelial Cells RARE /HPF Urine Crystals NONE /LPF Urine Bacteria TRACE /HPF Urine Casts PRESENT /LPF Urine Hyaline Casts 2-5 H /LPF Urine Mucus NEGATIVE /LPF Urine Culture Indicated NO Urine Opiates Screen NEGATIVE NEGATIVE Urine Oxycodone Screen NEGATIVE NEGATIVE Urine Methadone Screen NEGATIVE NEGATIVE Urine Propoxyphene Screen NEGATIVE NEGATIVE Urine Barbiturates Screen NEGATIVE NEGATIVE Ur Tricyclic Antidepressants Screen NEGATIVE NEGATIVE Urine Phencyclidine Screen NEGATIVE NEGATIVE Urine Amphetamines Screen NEGATIVE NEGATIVE Urine Methamphetamines Screen NEGATIVE NEGATIVE Urine Benzodiazepines Screen NEGATIVE NEGATIVE Urine Cocaine Screen NEGATIVE NEGATIVE Urine Cannabinoids Screen NEGATIVE NEGATIVE My Orders Orders - RAHEL AMOR DO Ct Head Wo (01/17/22 16:04) Cbc With Automated Diff (01/17/22 16:04) Comprehensive Metabolic Panel (01/17/22 16:04) Protime With Inr (01/17/22 16:04) Alcohol (01/17/22 16:04) Ua Culture If Indicated (01/17/22 16:04) Chest 1 View, Ap/Pa Only (01/17/22 16:04) Drug Screen Stat (Urine) (01/17/22 16:04) Lisinopril Tablet (Zestril Tablet) (01/17/22 17:15) Vital Signs/I&O 01/17/22 01/17/22 16:03 17:44 Pulse 85 79 B/P (MAP) 154/90 (111) 164/82 Pulse Ox 96 96 O2 Delivery Room Air Room Air Capillary Refill : Diagnostic Imaging Diagonstic Imaging: CT Plain Films/CT/US/NM/MRI: head [facility] [place] [place] NAME: KEVIN ASHLEY [facility] REC#: [id number] PT STATUS: REG ER : 1950 PHYSICIAN: RAHEL AMOR DO ADMIT DATE: 01/17/22/ER Signed Date of Exam:01/17/22 CT HEAD WO PROCEDURE: CT head without contrast. TECHNIQUE: Multiple contiguous axial images were obtained through the brain without the use of intravenous contrast. Auto Exposure Controls were utilized during the CT exam to meet ALARA standards for radiation dose reduction. INDICATION: Altered mental status. FINDINGS: There is prominence of the ventricles and sulci. There is no hydrocephalus or cerebral edema. There is no midline shift or mass-effect. There is no intracranial mass, hemorrhage, or extra-axial fluid collection. There is some diffuse decreased attenuation of the periventricular white matter which is nonspecific. The visualized paranasal sinuses and mastoid air cells are clear. There are no regional areas of decreased attenuation appreciated to suggest an acute CVA. IMPRESSION: 1. No acute intracranial process. 2. Age-appropriate atrophy. 3. Decreased attenuation of the periventricular white matter which is nonspecific, however, likely reflects senescent change and/or chronic small vessel ischemic disease. If there is high clinical concern for an acute CVA, further evaluation with MRI should be considered. Dictated by: Dictated on workstation # [id number] Dict: 01/17/22 1630 Trans: 01/17/22 1635 [facility] [id number] Interpreted by: MING RICHTER MD Electronically signed by: MING RICHTER MD 01/17/22 1637 [facility] [place] [place] NAME: [facility]EVIN ASHLEY [facility] REC#: [id number] PT STATUS: REG ER : 1950 PHYSICIAN: RAHEL AMOR DO ADMIT DATE: 01/17/22/ER Signed Date of Exam:01/17/22 CHEST 1 VIEW, AP/PA ONLY INDICATION: Right-sided jaw pain, leg weakness. FINDINGS: Lungs are clear. No failure, effusion, or pneumothorax. IMPRESSION: No acute appearing abnormality. Dictated by: Dictated on workstation # [id number] Dict: 01/17/221645 Trans: 01/17/221700 [id number] Interpreted by: FUNMI FERNANDEZ Electronically signed by: FUNMI FERNANDEZ 01/17/221700 Departure Communication (Admissions) Patient is hemodynamically stable no focal neurologic deficits. Her symptoms have completely resolved and she is symptom-free at present. Her daughter arrives and tells me she has severe dementia. She was worried because she "had one of her spells." She was being aggressive and yelling at home. They are in the process of being evaluated by [facility] in [facility] however the daughter has yet to get the medical power of workers compensation attorney paperwork that was needed. She did get her [place] Medicare transferred to [place] which was also part of the problem. We spoke with behavioral health specialist at [facility]. They have set up an evaluation of her later in the week. Currently her stroke work-up is negative and she is completely asymptomatic. She was discharged home with her daughter with close follow-up. Daughter and patient are comfortable and agreeable to the current plan of care Impression Primary Impression: Dementia with behavioral disturbance Qualified Codes: F03.91 - Unspecified dementia with behavioral disturbance Additional Impression: Hypertension Qualified Codes: I10 - Essential (primary) hypertension Disposition: HOME, SELF-CARE Condition: Stable Departure-Patient Inst. Referrals: NO,LOCAL PHYSICIAN (PCP/Family) Primary Care Physician Patient Instructions: Dementia ED Add. Discharge Instructions: Please continue to take all home medications as previously prescribed. I do recommend she have her screened at [facility]. I have printed the medical power of workers compensation attorney forms from the [facility]. You will need to complete these and take them in front of a notary. They cannot do a screening or intake until this is completed. Return to the emergency department for any severe concerns, particularly if she develops any difficulty speaking, weakness on one side of her body or facial droop. RAHEL AMOR DO Jan 17, 2022 16:09
[2022-01-17 16:11] LABS: BASOPHILS % (AUTO) 0 % (0-10); EOSINOPHILS # (AUTO) 0.3 10^3/uL (0.0-0.3); EOSINOPHILS % (AUTO) 3 % (0-10); HEMATOCRIT 36 % (35-52); HEMOGLOBIN 11.5 g/dL (11.5-16.0); LYMPHOCYTES # (AUTO) 1.4 10^3/uL (1.0-4.0); LYMPHOCYTES % (AUTO) 17 % (12-44); MEAN CORPUSCULAR HEMOGLOBIN 31 pg (25-34); MEAN CORPUSCULAR HGB CONC 32 g/dL (32-36); MEAN CORPUSCULAR VOLUME 95 fL (80-99); MEAN PLATELET VOLUME 10.1 fL (9.0-12.2); MONOCYTES # (AUTO) 0.4 10^3/uL (0.0-1.0); MONOCYTES % (AUTO) 5 % (0-12); NEUTROPHILS % (AUTO) 74 % (42-75); PLATELET COUNT 205 10^3/uL (130-400); WHITE BLOOD COUNT 8.2 10^3/uL (4.3-11.0)
[2022-01-17 16:25] LABS: ALBUMIN 3.7 GM/DL (3.2-4.5); CHLORIDE 105 MMOL/L (98-107); INR 1.1 (0.8-1.4); POTASSIUM 3.2 MMOL/L (3.6-5.0); PROTHROMBIN TIME PATIENT 14.7 SEC (12.2-14.7); SODIUM 142 MMOL/L (135-145)
[2022-01-17 16:26] LABS: CALCIUM 8.9 MG/DL (8.5-10.1)
[2022-01-17 16:27] LABS: GLUCOSE 221 MG/DL (70-105); TOTAL PROTEIN 7.1 GM/DL (6.4-8.2)
[2022-01-17 16:28] LABS: CARBON DIOXIDE 28 MMOL/L (21-32)
[2022-01-17 16:29] LABS: BILIRUBIN,TOTAL 1.8 MG/DL (0.1-1.0)
[2022-01-17 16:31] LABS: ALKALINE PHOSPHATASE 99 U/L (40-136); CREATININE SERUM 0.93 MG/DL (0.60-1.30); GFR ESTIMATED 65
[2022-01-17 16:32] LABS: BUN/CREATININE RATIO 17
--- NOTE | 2022-01-17 16:32 | Diagnostic Imaging Report ---
PROCEDURE: CT head without contrast. TECHNIQUE: Multiple contiguous axial images were obtained through the brain without the use of intravenous contrast. Auto Exposure Controls were utilized during the CT exam to meet ALARA standards for radiation dose reduction. INDICATION: Altered mental status. FINDINGS: There is prominence of the ventricles and sulci. There is no hydrocephalus or cerebral edema. There is no midline shift or mass-effect. There is no intracranial mass, hemorrhage, or extra-axial fluid collection. There is some diffuse decreased attenuation of the periventricular white matter which is nonspecific. The visualized paranasal sinuses and mastoid air cells are clear. There are no regional areas of decreased attenuation appreciated to suggest an acute CVA. IMPRESSION: 1. No acute intracranial process. 2. Age-appropriate atrophy. 3. Decreased attenuation of the periventricular white matter which is nonspecific, however, likely reflects senescent change and/or chronic small vessel ischemic disease. If there is high clinical concern for an acute CVA, further evaluation with MRI should be considered. Dictated by: Dictated on workstation # [id number]
[2022-01-17 16:34] LABS: ALANINE AMINOTRANSFERASE 26 U/L (0-55)
[2022-01-17 16:35] LABS: BILIRUBIN,URINE NEGATIVE (NEGATIVE); CLARITY,URINE CLEAR; COLOR,URINE YELLOW; GLUCOSE, URINE (UA) NEGATIVE (NEGATIVE); KETONES,URINE NEGATIVE (NEGATIVE); LEUKOCYTE ESTERASE ,URINE NEGATIVE (NEGATIVE); NITRITE,URINE NEGATIVE (NEGATIVE); PH,URINE 5.5 (5-9); PROTEIN,URINE 1+ (NEGATIVE)
[2022-01-17 16:43] LABS: WBC,URINE RARE /HPF
[2022-01-17 16:44] LABS: BACTERIA,URINE TRACE /HPF; SQUAMOUS EPITHELIAL CELL,UR RARE /HPF
[2022-01-17 16:52] LABS: AMPHETAMINE SCREEN, URINE NEGATIVE (NEGATIVE); BARBITURATE SCREEN URINE NEGATIVE (NEGATIVE); BENZODIAZEPINES SCREEN URINE NEGATIVE (NEGATIVE); CANNABINOID SCREEN, URINE NEGATIVE (NEGATIVE); COCAINE SCREEN URINE NEGATIVE (NEGATIVE); METHADONE STAT NEGATIVE (NEGATIVE); OPIATE SCREEN URINE NEGATIVE (NEGATIVE); OXYCODONE STAT NEGATIVE (NEGATIVE); PROPOXYPHENE STAT NEGATIVE (NEGATIVE); TRICYCLIC ANTIDEPRESSANTS SCRE NEGATIVE (NEGATIVE)
--- NOTE | 2022-01-17 16:53 | Diagnostic Imaging Report ---
INDICATION: Right-sided jaw pain, leg weakness. FINDINGS: Lungs are clear. No failure, effusion, or pneumothorax. IMPRESSION: No acute appearing abnormality. Dictated by: Dictated on workstation # [id number]
[2022-01-17] MEDS ORDERED: lisINopril 20 MG (PRINIVIL) TABLET PO ONE (17:15)
[2022-01-17 17:44] VITALS: BP 164/82
== END 2022-01-17 17:44 | disposition home or self-care (01) ==
LOC: EDUNIT# 16:03 → ER 16:04
DX: I10 Essential (primary) hypertension (principal); F03.918 Unspecified dementia, unspecified severity, with other behavioral disturbance; E11.9 Type 2 diabetes mellitus without complications; Z79.4 Long term (current) use of insulin
CPT/HCPCS: 51701; 70450; 71045; 80053; 80306; 81000; 85025; 85610; 99284; G0480; 36415; 80320

== ENCOUNTER 2022-01-27 19:39 | Observation (INO) | payer MEDICARE ==
[~2022-01-27] VITALS: Ht 157 cm; Wt 89.2 kg
[2022-01-27 20:58] LABS: BASOPHILS % (AUTO) 1 % (0-10); EOSINOPHILS # (AUTO) 0.2 10^3/uL (0.0-0.3); EOSINOPHILS % (AUTO) 3 % (0-10); HEMATOCRIT 36 % (35-52); HEMOGLOBIN 11.3 g/dL (11.5-16.0); LYMPHOCYTES # (AUTO) 1.7 10^3/uL (1.0-4.0); LYMPHOCYTES % (AUTO) 19 % (12-44); MEAN CORPUSCULAR HEMOGLOBIN 30 pg (25-34); MEAN CORPUSCULAR HGB CONC 31 g/dL (32-36); MEAN CORPUSCULAR VOLUME 97 fL (80-99); MEAN PLATELET VOLUME 10.5 fL (9.0-12.2); MONOCYTES # (AUTO) 0.5 10^3/uL (0.0-1.0); MONOCYTES % (AUTO) 6 % (0-12); NEUTROPHILS # (AUTO) 6.1 10^3/uL (1.8-7.8); NEUTROPHILS % (AUTO) 71 % (42-75); PLATELET COUNT 188 10^3/uL (130-400); WHITE BLOOD COUNT 8.5 10^3/uL (4.3-11.0)
[2022-01-27 21:05] LABS: BILIRUBIN,URINE NEGATIVE (NEGATIVE); CLARITY,URINE CLEAR; COLOR,URINE YELLOW; GLUCOSE, URINE (UA) NEGATIVE (NEGATIVE); KETONES,URINE NEGATIVE (NEGATIVE); LEUKOCYTE ESTERASE ,URINE NEGATIVE (NEGATIVE); NITRITE,URINE NEGATIVE (NEGATIVE); PH,URINE 5.5 (5-9); PROTEIN,URINE 2+ (NEGATIVE)
[2022-01-27 21:11] LABS: ALBUMIN 3.6 GM/DL (3.2-4.5); BILIRUBIN,TOTAL 0.9 MG/DL (0.1-1.0); CALCIUM 8.9 MG/DL (8.5-10.1); CREATININE SERUM 0.84 MG/DL (0.60-1.30); MAGNESIUM 1.6 MG/DL (1.6-2.4); POTASSIUM 3.8 MMOL/L (3.6-5.0); TOTAL PROTEIN 7.3 GM/DL (6.4-8.2)
[2022-01-27 21:31] LABS: TSH (THYROID ANALYZER) 0.33 UIU/ML (0.35-4.94)
[2022-01-27 22:05] LABS: BACTERIA,URINE FEW /HPF; HYALINE CASTS, URINE 0-2 /LPF; RBC,URINE 0 /HPF
[2022-01-27 22:12] LABS: FREE T4 (FREE THYROXINE) 1.25 NG/DL (0.70-1.48)
[2022-01-27] MEDS ORDERED: cefTRIAXone 1 GM PRE-MIX 50 ML IV STA (23:36)
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
[2022-01-28 01:08] VITALS: BP 177/83
[2022-01-28] MEDS ORDERED: CATHETER FLUSH 10 ML SYR IVP PRN (01:30)
[2022-01-28] MEDS ORDERED: QUEtiapine 25 MG (SEROquel) TAB IMMEDIATE RELEASE PO PRN (01:45)
[2022-01-28] MEDS ORDERED: ACETAMINOPHEN 500 MG TAB (TYLENOL) PO PRN (01:45)
[2022-01-28] MEDS ORDERED: ONDANSETRON 4 MG/2 ML (SDV) Z0FRAN IV PRN (01:45)
[2022-01-28 03:51] VITALS: BP 176/82
[2022-01-28 08:11] VITALS: BP 184/83
[2022-01-28] MEDS ORDERED: CATHETER FLUSH 10 ML SYR IVP SCH (09:00)
[2022-01-28 11:28] VITALS: BP 177/92
[2022-01-28] MEDS ORDERED: amLODIPine 5 MG (NORVASC) TAB PO NR (12:15)
--- NOTE | 2022-01-28 13:52 | Short Stay Summary ---
VENICEVINICIOHOWARD Harris 01/28/22 1352: History of Present Illness History of Present Illness Reason for visit/HPI CC: AMS 71 yo F with h/o dementia, bipolar disorder, schizophrenia, recent stroke in September, IDDM, and HTN was admitted to the floor yesteday after presenting to the ED with AMS and combative behavior. Per ED note, pt was brought to the ED after becoming combative with family members. Pt has been to the ED on three separate occasions for behavioral disturbances. Pt has a h/o intermittent agitation that escalates to aggressive behavior towards family as well as frequently wandering away from the home. Per note, pt's family was in the process of obtaining placement at [facility] and pt assessment scheduled for today. In the ED, pt presented confused and stated that she was afraid of her granddaughter. Pt had a UA that yielded bacteria. Pt was given a dose of Ceftriaxone and admitted to the floor for observation. Today, pt is laying in bed comfortably. Pt is coorperative and friendly. She has no complaints. Pt is AOX3 but seems confused when asked questions. Pt states that she has been eating, voiding, and having BMs without issue. Pt's BP is elevated at 176/82 due to not having her home medications, was started on amlodipine. Pt denies nausea, vomiting, CP, SOA, diarrhea, abd pain, use of a walker, and h/o falls. Date of Admission Jan 27, 2022 at 23:59 Date of Discharge Time Seen by Provider: 13:41 Attending Physician No,Local Physician Admitting Physician Admitting Physician: Cailin Mae DO Attending Physician: Cailin Mae DO Consult Allergies and Home Medications Allergies Coded Allergies: No Known Drug Allergies (Unverified , 11/01/21) Patient Home Medication List Home Medication List Reviewed: Yes Atorvastatin Calcium (Atorvastatin Calcium) 40 Mg Tablet, 40 MG PO DAILY, (Reported) Entered as Reported by: ARNALDO BATES on 01/28/22 7089 Last Action: Reviewed Insulin Glargine,Hum.rec.anlog (Lantus) 100 Unit/Ml Vial, 14 UNIT SQ DAILY, (Reported) Entered as Reported by: ARNALDO BATES on 01/28/22 5123 Last Action: Reviewed Ipratropium/Albuterol Sulfate (Iprat-Albut 0.5-3(2.5) mg/3 ml) 0.5 Mg-3 Mg (2.5 Mg Base)/3 Ml Ampul.neb, 3 ML IH Q4H PRN for SHORTNESS OF BREATH, (Reported) Entered as Reported by: ARNALDO BATES on 01/28/221434 Last Action: Reviewed Lisinopril/Hydrochlorothiazide (Lisinopril-Hctz 10-12.5 mg Tab) 10 Mg-12.5 Mg Tablet, 1 EACH PO DAILY, (Reported) Entered as Reported by: ARNALDO BATES on 01/28/221434 Last Action: Reviewed Metformin HCl (Metformin HCl) 500 Mg Tablet, 500 MG PO DAILY, (Reported) Entered as Reported by: ARNALDO BATES on 01/28/221434 Last Action: Reviewed Discontinued Medications Atorvastatin Calcium (Atorvastatin Calcium) 40 Mg Tablet, 40 MG PO DAILY Discontinued Reason: No Longer Taking Prescribed by: NGHIA PARK on 10/29/21 150 Last Action: Discontinued Fluconazole (Diflucan) 150 Mg Tablet, 150 MG PO ONCE Discontinued Reason: No Longer Taking Prescribed by: MARIAN ARIAS on 11/01/21 1305 Last Action: Discontinued Insulin Glargine,Hum.rec.anlog (Lantus) 100 Unit/Ml Vial, 14 UNIT SQ DAILY Discontinued Reason: No Longer Taking Prescribed by: NGHIA PARK on 10/29/21 1504 Last Action: Discontinued Ipratropium/Albuterol Sulfate (Iprat-Albut 0.5-3(2.5) mg/3 ml) 0.5 Mg-3 Mg (2.5 Mg Base)/3 Ml Ampul.neb, 3 ML IH Q4H PRN for SHORTNESS OF BREATH Discontinued Reason: No Longer Taking Prescribed by: MARIAN ARIAS on 11/01/21 1305 Last Action: Discontinued Lisinopril/Hydrochlorothiazide (Lisinopril-Hctz 10-12.5 mg Tab) 10 Mg-12.5 Mg Tablet, 1 EACH PO DAILY Discontinued Reason: No Longer Taking Prescribed by: NGHIA PARK on 10/29/21 1504 Last Action: Discontinued Metformin HCl (Metformin HCl) 500 Mg Tablet, 500 MG PO BID Discontinued Reason: No Longer Taking Prescribed by: NGHIA PARK on 10/29/21 1504 Last Action: Discontinued Past Lhipgya-Pcnwjj-Mbsqkh Hx Patient Social History Smoking Status: Former Smoker Have you traveled recently?: Yes Alcohol Use?: No Pt feels they are or have been: No Tobacco type used: Cigarettes Surgeries Yes Abdominal, Joint Replacement Respiratory No Cardiovascular Yes Hypertension Neurological Yes Dementia, Stroke Reproductive System Hx Reproductive Disorders: No Genitourinary No Gastrointestinal No Musculoskeletal No Endocrine History of Endocrine Disorders: Yes Endocrine Disorders: Diabetes, Insulin dep HEENT History of HEENT Disorders: Yes Loss of Vision: Left Cancer No Psychosocial History of Psychiatric Problem: Yes Behavioral Health Disorders: Bipolar, Schizophrenia Integumentary History of Skin or Integumenta: No Family Medical History Significant Family History: No Pertinent Family Hx Review of Systems Constitutional: No chills, No diaphoresis EENTM: No ear discharge, No hearing loss, No ear pain Respiratory: No cough, No dyspnea on exertion Cardiovascular: No chest pain, No palpitations Gastrointestinal: No abdominal pain, No constipation, No diarrhea, No nausea, No vomiting Genitourinary: No decreased output, No discharge, No dysuria Musculoskeletal: No back pain, No gout, No joint pain Skin: No change in color, No change in hair/nails Psychiatric/Neurological: Denies Anxiety, Denies Depressed, Denies Headache Physical Exam Vital Signs Vital Signs - First Documented 01/27/22 19:43 Temp 36.3 Pulse 91 Resp 18 B/P (MAP) 119/100 (106) Pulse Ox 95 O2 Delivery Room Air Capillary Refill : Less Than 3 Seconds Height, Weight, BMI Height: '" Weight: lbs. oz. kg; 36.18 BMI Method: General Appearance: No Apparent Distress, WD/WN HEENT: PERRL/EOMI, Moist Mucous Membranes Neck: Normal Inspection Respiratory: Chest Non Tender, Lungs Clear, Normal Breath Sounds, No Accessory Muscle Use Cardiovascular: Regular Rate, Rhythm, No Gallop, No Murmur Gastrointestinal: No Pulsatile Mass, Non Tender, Soft Back: Normal Inspection, No CVA Tenderness Extremity: Normal Inspection, No Calf Tenderness, No Pedal Edema Neurologic/Psychiatric: Alert, Oriented x3 (h/o dementia), Normal Mood/Affect Skin: Normal Color, Warm/Dry Lymphatic: No Adenopathy Short Stay Diagnosis Discharge Diagnosis-Short Stay Admission Diagnosis: Behavioral disturbances Final Discharge Diagnosis: Behavioral disturbances Conclusion Labs Laboratory Tests 10/27/22 20:35: White Blood Count 8.5, Red Blood Count 3.75L, Hemoglobin 11.3L, Hematocrit 36, Mean Corpuscular Volume 97, Mean Corpuscular Hemoglobin 30, Mean Corpuscular Hemoglobin Concent 31L, Red Cell Distribution Width 15.6H, Platelet Count 188, Mean Platelet Volume 10.5, Immature Granulocyte % (Auto) 1, Neutrophils (%) (Auto) 71, Lymphocytes (%) (Auto) 19, Monocytes (%) (Auto) 6, Eosinophils (%) (Auto) 3, Basophils (%) (Auto) 1, Neutrophils # (Auto) 6.1, Lymphocytes # (Auto) 1.7, Monocytes # (Auto) 0.5, Eosinophils # (Auto) 0.2, Basophils # (Auto) 0.0, Immature Granulocyte # (Auto) 0.0, Sodium Level 145, Potassium Level 3.8, Chloride Level 107, Carbon Dioxide Level 27, Anion Gap 11, Blood Urea Nitrogen 16, Creatinine 0.84, Estimat Glomerular Filtration Rate 73, BUN/Creatinine Ratio 19, Glucose Level 162H, Calcium Level 8.9, Corrected Calcium 9.2, Magnesium Level 1.6, Total Bilirubin 0.9, Aspartate Amino Transf (AST/SGOT) 15, Alanine Aminotransferase (ALT/SGPT) 20, Alkaline Phosphatase 100, C-Reactive Protein High Sensitivity 0.65H, Total Protein 7.3, Albumin 3.6, Free Thyroxine 1.25, TSH [place] Testing 0.33L 01/27/22 20:55: Urine Color YELLOW, Urine Clarity CLEAR, Urine pH 5.5, Urine Specific [place] >=1.030, Urine Protein 2+H, Urine Glucose (UA) NEGATIVE, Urine Ketones NEGATIVE, Urine Nitrite NEGATIVE, Urine Bilirubin NEGATIVE, Urine Urobilinogen 0.2, Urine Leukocyte Esterase NEGATIVE, Urine RBC (Auto) NEGATIVE, Urine RBC 0, Urine WBC 2-5, Urine Squamous Epithelial Cells 5-10, Urine Crystals NONE, Urine Bacteria FEWH, Urine Casts PRESENT, Urine Hyaline Casts 0-2H, Urine Mucus NEGATIVE, Urine Culture Indicated YES 01/28/22 05:05: Glucometer 115H 01/28/22 09:17: Glucometer 139H 01/28/22 11:26: Glucometer 144H Conclusion/Plan 1. Behavioral Disturbances -h/o agitation and aggression with family -Family in process of getting pt admitted to [facility] 2. Dementia -see above 3. Schizophrenia 4. Bipolar 5. HTN -started on amlodipine 6. IDDM -controlled 7. H/o Stroke 9. UTI -resolved Plan: Started on amlodipine Continue insulin regimen [facility] assessment in hospital, transfer to unit if accepted CAILIN MAE 01/29/22 0529: Allergies and Home Medications Allergies Coded Allergies: No Known Drug Allergies (Unverified , 11/01/21) Patient Home Medication List Atorvastatin Calcium (Atorvastatin Calcium) 40 Mg Tablet, 40 MG PO DAILY, (Reported) Entered as Reported by: ARNALDO BATES on 01/28/221434 Last Action: Reviewed Insulin Glargine,Hum.rec.anlog (Lantus) 100 Unit/Ml Vial, 14 UNIT SQ DAILY, (Reported) Entered as Reported by: ARNALDO BATES on 01/28/221434 Last Action: Reviewed Ipratropium/Albuterol Sulfate (Iprat-Albut 0.5-3(2.5) mg/3 ml) 0.5 Mg-3 Mg (2.5 Mg Base)/3 Ml Ampul.neb, 3 ML IH Q4H PRN for SHORTNESS OF BREATH, (Reported) Entered as Reported by: ARNALDO BATES on 01/28/221434 Last Action: Reviewed Lisinopril/Hydrochlorothiazide (Lisinopril-Hctz 10-12.5 mg Tab) 10 Mg-12.5 Mg Tablet, 1 EACH PO DAILY, (Reported) Entered as Reported by: ARNALDO BATES on 01/28/221434 Last Action: Reviewed Metformin HCl (Metformin HCl) 500 Mg Tablet, 500 MG PO DAILY, (Reported) Entered as Reported by: ARNALDO BATES on 01/28/221434 Last Action: Reviewed Discontinued Medications Atorvastatin Calcium (Atorvastatin Calcium) 40 Mg Tablet, 40 MG PO DAILY Discontinued Reason: No Longer Taking Prescribed by: NGHIA PARK on 10/29/21 1504 Last Action: Discontinued Fluconazole (Diflucan) 150 Mg Tablet, 150 MG PO ONCE Discontinued Reason: No Longer Taking Prescribed by: MARIAN ARIAS on 11/01/21 1305 Last Action: Discontinued Insulin Glargine,Hum.rec.anlog (Lantus) 100 Unit/Ml Vial, 14 UNIT SQ DAILY Discontinued Reason: No Longer Taking Prescribed by: NGHIA PARK on 10/29/211503 Last Action: Discontinued Ipratropium/Albuterol Sulfate (Iprat-Albut 0.5-3(2.5) mg/3 ml) 0.5 Mg-3 Mg (2.5 Mg Base)/3 Ml Ampul.neb, 3 ML IH Q4H PRN for SHORTNESS OF BREATH Discontinued Reason: No Longer Taking Prescribed by: MARIAN ARIAS on 11/01/21 1305 Last Action: Discontinued Lisinopril/Hydrochlorothiazide (Lisinopril-Hctz 10-12.5 mg Tab) 10 Mg-12.5 Mg Tablet, 1 EACH PO DAILY Discontinued Reason: No Longer Taking Prescribed by: NGHIA PARK on 10/29/211503 Last Action: Discontinued Metformin HCl (Metformin HCl) 500 Mg Tablet, 500 MG PO BID Discontinued Reason: No Longer Taking Prescribed by: NGHIA PARK on 10/29/211503 Last Action: Discontinued Physical Exam General Appearance: No Apparent Distress, WD/WN Eyes: Bilateral Eye Normal Inspection, Bilateral Eye PERRL, Bilateral Eye EOMI HEENT: PERRL/EOMI, TMs Normal, Normal ENT Inspection, Pharynx Normal Neck: Full Range of Motion, Normal Inspection, Non Tender, Supple, Carotid Bruit Respiratory: Chest Non Tender, Lungs Clear, Normal Breath Sounds, No Accessory Muscle Use, No Respiratory Distress Cardiovascular: Regular Rate, Rhythm, No Edema, No Gallop, No JVD, No Murmur, Normal Peripheral Pulses Gastrointestinal: Normal Bowel Sounds, No Organomegaly, No Pulsatile Mass, Non Tender, Soft Back: Normal Inspection, No CVA Tenderness, No Vertebral Tenderness Extremity: Normal Capillary Refill, Normal Inspection, Normal Range of Motion, Non Tender, No Calf Tenderness, No Pedal Edema Neurologic/Psychiatric: Alert, No Motor/Sensory Deficits, Depressed Affect, Disoriented Skin: Normal Color, Warm/Dry Lymphatic: No Adenopathy Short Stay Diagnosis Discharge Diagnosis-Short Stay Admission Diagnosis: Confusion Dementia Hypertension Final Discharge Diagnosis: Confusion Dementia Hypertension Conclusion Conclusion/Plan Discharge home with family Supervisory-Addendum Brief Verification & Attestation Participated in pt care: history, MDM, physical Personally performed: exam, history, MDM, supervision of care Care discussed with: Medical Student Procedures: n/a Results interpretation: Verified all documentation Verification and Attestation of Medical Student E/M Service A medical student performed and documented this service in my presence. I reviewed and verified all information documented by the medical student and made modifications to such information, when appropriate. I personally performed the physical exam and medical decision making. Cailin Mae, Jan 29, 2022,05:28 HOWARD PERES Jan 28, 2022 13:52 CAILIN MAE DO Jan 29, 2022 05:29
[2022-01-28] MEDS ORDERED: METF-397 PO (14:35)
[2022-01-28] MEDS ORDERED: IPRA3AMP31 IH (14:35)
[2022-01-28] MEDS ORDERED: ATOR40TA70 PO (14:35)
[2022-01-28] MEDS ORDERED: LISI1TAB44 PO (14:35)
[2022-01-28] MEDS ORDERED: INSU100V6 SQ (14:35)
[2022-01-28 15:32] VITALS: BP 172/82
[2022-01-28 16:39] VITALS: BP 172/82
[2022-01-29] MEDS ORDERED: amLODIPine 5 MG (NORVASC) TAB PO SCH (09:00)
== END 2022-01-28 14:49 | disposition home or self-care (01) ==
LOC: EDUNIT# 19:39 → ER 19:40 → 4TH 23:59
PROVIDERS: ADMIT Internal Medicine; ATTEND Internal Medicine
DX: F03.918 Unspecified dementia, unspecified severity, with other behavioral disturbance (principal); R41.0 Disorientation, unspecified; I10 Essential (primary) hypertension; F20.9 Schizophrenia, unspecified; F31.9 Bipolar disorder, unspecified; E11.9 Type 2 diabetes mellitus without complications; Z79.4 Long term (current) use of insulin; Z79.899 Other long term (current) drug therapy; Z86.73 Personal history of transient ischemic attack (TIA), and cerebral infarction without residual deficits; Z79.84 Long term (current) use of oral hypoglycemic drugs; Z87.891 Personal history of nicotine dependence
CPT/HCPCS: 36415; 80053; 81000; 82947; 83735; 84439; 84443; 85025; 86141; 87088; G0378

== ENCOUNTER 2022-01-28 21:32 | Observation (INO) | payer MEDICARE, MEDICAID ==
[~2022-01-28] VITALS: Ht 157.5 cm; Wt 86.5 kg
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
[2022-01-29 04:44] LABS: BASOPHILS % (AUTO) 0 % (0-10); EOSINOPHILS # (AUTO) 0.4 10^3/uL (0.0-0.3); EOSINOPHILS % (AUTO) 5 % (0-10); HEMATOCRIT 40 % (35-52); HEMOGLOBIN 12.4 g/dL (11.5-16.0); LYMPHOCYTES # (AUTO) 2.6 10^3/uL (1.0-4.0); LYMPHOCYTES % (AUTO) 27 % (12-44); MEAN CORPUSCULAR HEMOGLOBIN 30 pg (25-34); MEAN CORPUSCULAR HGB CONC 31 g/dL (32-36); MEAN CORPUSCULAR VOLUME 97 fL (80-99); MEAN PLATELET VOLUME 9.9 fL (9.0-12.2); MONOCYTES # (AUTO) 0.6 10^3/uL (0.0-1.0); MONOCYTES % (AUTO) 7 % (0-12); NEUTROPHILS # (AUTO) 5.8 10^3/uL (1.8-7.8); NEUTROPHILS % (AUTO) 61 % (42-75); PLATELET COUNT 212 10^3/uL (130-400); WHITE BLOOD COUNT 9.6 10^3/uL (4.3-11.0)
[2022-01-29 04:54] LABS: ALBUMIN 3.8 GM/DL (3.2-4.5); CHLORIDE 105 MMOL/L (98-107); POTASSIUM 3.9 MMOL/L (3.6-5.0); SODIUM 142 MMOL/L (135-145)
[2022-01-29 04:55] LABS: CALCIUM 9.4 MG/DL (8.5-10.1)
[2022-01-29 04:56] LABS: GLUCOSE 103 MG/DL (70-105); TOTAL PROTEIN 7.6 GM/DL (6.4-8.2)
[2022-01-29 04:57] LABS: CARBON DIOXIDE 30 MMOL/L (21-32)
[2022-01-29 04:58] LABS: BILIRUBIN,TOTAL 1.1 MG/DL (0.1-1.0)
[2022-01-29 05:00] LABS: ALKALINE PHOSPHATASE 91 U/L (40-136); CREATININE SERUM 0.86 MG/DL (0.60-1.30); GFR ESTIMATED 71
[2022-01-29 05:01] LABS: BUN/CREATININE RATIO 16
[2022-01-29 05:03] LABS: ALANINE AMINOTRANSFERASE 19 U/L (0-55)
[2022-01-29 08:33] LABS: SALICYLATE < 5.0 MG/DL (5.0-20.0)
[2022-01-29 08:35] LABS: ACETAMINOPHEN < 10 UG/ML (10-30)
[2022-01-29] MEDS ORDERED: LACTULOSE SYRUP 10GM/15ML (ENULOSE) 30ML UDC PO PRN (16:45)
[2022-01-29] MEDS ORDERED: polyethylene glycoL POWDER 17 GM (MIRALAX) PACK PO PRN (16:45)
[2022-01-29] MEDS ORDERED: CALCIUM CARBONATE 500 MG (TUMS) TAB.CHEW PO PRN (16:45)
[2022-01-29] MEDS ORDERED: BISACODYL 10 MG SUPP (DULCOLAX) PR PRN (16:45)
[2022-01-29] MEDS ORDERED: ONDANSETRON 4 MG/2 ML (SDV) Z0FRAN IV PRN (16:45)
[2022-01-29] MEDS ORDERED: ONDANSETRON 4 MG (ZOFRAN) ORAL DISSOLVE TAB PO PRN (16:45)
[2022-01-29] MEDS ORDERED: MILK OF MAGNESIA 400 MG/5 ML 30 ML UDC PO PRN (16:45)
[2022-01-29] MEDS ORDERED: ANTACID SUSP 30 ML UDC (MYLANTA) PO PRN (16:45)
[2022-01-29 17:16] VITALS: BP 151/84
[2022-01-29] MEDS ORDERED: RT-ALBUTEROL/IPRATROPIUM 3 ML (DUONEB) VIAL INH PRN (17:30)
[2022-01-29] MEDS: ENOXAPARIN 40 MG/0.4 ML (LOVENOX) SYR SC SCH (17:32)
[2022-01-29 20:00] VITALS: BP 177/95
[2022-01-29] MEDS: DOCUSATE SODIUM 100 MG (COLACE) CAP PO SCH (20:14)
[2022-01-29] MEDS: SENNOSIDES 8.6 MG (SENOKOT) TAB PO SCH (20:14)
[2022-01-29] MEDS: inSUlin ASPART (NovoLOG) 1 UNIT/0.01 ML (CHARGE PER UNIT) SC SCH (20:15)
[2022-01-29 23:53] VITALS: BP 176/85
[2022-01-30 04:21] VITALS: BP 171/70
[2022-01-30] MEDS: inSUlin ASPART (NovoLOG) 1 UNIT/0.01 ML (CHARGE PER UNIT) SC SCH ×4 (06:14→21:08)
[2022-01-30 08:00] VITALS: BP 200/103
[2022-01-30 08:30] VITALS: BP 166/88
[2022-01-30] MEDS: SENNOSIDES 8.6 MG (SENOKOT) TAB PO SCH ×2 (08:36→21:08)
[2022-01-30] MEDS: metFORMIN XR 500 MG (GLUCOPHAGE XR) TAB PO SCH (08:36)
[2022-01-30] MEDS: DOCUSATE SODIUM 100 MG (COLACE) CAP PO SCH ×2 (08:36→21:08)
[2022-01-30] MEDS ORDERED: lisINopril 10 MG (PRINIVIL) TABLET PO SCH (09:00)
[2022-01-30] MEDS ORDERED: HydroCHLOROthiazide CAP/TABLET 12.5 MG TAB PO SCH (09:00)
[2022-01-30] MEDS ORDERED: hydrALAZINE (APESOLINE) 20 MG/ML VIAL IV PRN (09:00)
[2022-01-30 12:00] VITALS: BP 184/99
[2022-01-30 16:00] VITALS: BP 157/76
--- NOTE | 2022-01-30 17:14 | History & Physical-Hospitalist ---
History of Present Illness HPI/Chief Complaint Kiana Francis is a 71 year old female with PMH HTN, CVA, dementia, who presented with confusion. Her family brought her to the ER because they did not feel they could care for her at home anymore. She has been living with her granddaughter here. She was reportedly being aggressive with them. She is from [place]. She says she wants to go back there, but most of her family from there has . She has a son who still lives there. She does not want to live with her granddaughter here in [place]. She is in her normal state of health. She has no complaints. She is alert and oriented to person, place, and date. Source: patient, RN/MD Exam Limitations: no limitations Date Seen 01/30/22 Time Seen by a Provider: 10:50 Attending Physician No,Local Physician PCP Admitting Physician: Tejal Brock MD Attending Physician: Tejal Brock MD Referring Physician Date of Admission Jan 29, 2022 at 15:52 Home Medications & Allergies Home Medications Reviewed patient Home Medication Reconciliation performed by pharmacy medication reconciliations engineering laboratory technician and/or nursing. Patients Allergies have been reviewed. Allergies Allergies Coded Allergies No Known Drug Allergies (Unverified11/01/21) Past Mrpubai-Zgqgvt-Nmtdap Hx Patient Social History Tobacco Use?: No Use of E-Cig and/or Vaping dev: No Substance use?: No Alcohol Use?: No Pt feels they are or have been: Yes Immunizations Up To Date Date of Influenza Vaccine: Jan 27, 2022 First/Initial COVID19 Vaccinat: 2020 Second COVID19 Vaccination Christian: 2020 Tetanus Booster (TDap): Less Than 5 Years Current Status Advance Directives: No Communicates: Verbally Primary Language: Urdu Preferred Spoken Language: Urdu Is interpretation needed?: No Sensory deficits: Hearing impairment Implanted or Applied Medical D: None Past Medical History Surgeries: Abdominal, Joint Replacement Hypertension Dementia, Stroke Diabetes, Insulin dep Loss of Vision: Left Bipolar, Schizophrenia Family Medical History No Pertinent Family Hx Review of Systems Constitutional: no symptoms reported EENTM: no symptoms reported Respiratory: no symptoms reported Cardiovascular: no symptoms reported Gastrointestinal: no symptoms reported Physical Exam Physical Exam Vital Signs Vital Signs - First Documented 01/28/22 01/29/22 01/30/22 22:05 06:47 08:23 Temp 36.4 Pulse 76 Resp 16 B/P (MAP) 181/75 (110) Pulse Ox 95 O2 Delivery Room Air O2 Flow Rate 0.00 Capillary Refill : Less Than 3 Seconds Height, Weight, BMI Height: '" Weight: lbs. oz. kg; 34.87 BMI Method: General Appearance: No Apparent Distress, Obese HEENT: PERRL/EOMI, Pharynx Normal Neck: Normal Inspection, Supple Respiratory: Lungs Clear, No Respiratory Distress Cardiovascular: Regular Rate, Rhythm, No Murmur Gastrointestinal: Normal Bowel Sounds, Non Tender, Soft Extremity: Normal Inspection, No Pedal Edema Neurologic/Psychiatric: Alert, Oriented x3 Skin: Normal Color, Warm/Dry Results Results/Procedures Labs Laboratory Tests 01/29/22 04:34 Patient resulted labs reviewed. Assessment/Plan Admission Diagnosis Dementia with behavioral disturbance Admission Status: Observation Assessment and Plan Dementia with behavioral disturbance Family can not care for her at home Social work consulted May need placement or assistance coordinating return to [place] HTN Lisinopril HCTZ Iincrease doses Hydralazine as needed T2DM Metformin HLD Lipitor History of stroke Begin Aspirin DVT prophylaxis: Lovenox Diagnosis/Problems Diagnosis/Problems (1) Dementia with behavioral disturbance Status: Acute (2) Hypertension Status: Acute (3) T2DM (type 2 diabetes mellitus) Status: Chronic Qualifiers: Diabetes mellitus senior care insulin use: with manager intermediate use (4) HLD (hyperlipidemia) Status: Chronic (5) History of stroke Status: Chronic (6) Obesity Status: Chronic TEJAL BROCK MD Jan 30, 2022 17:14
[2022-01-30] MEDS ORDERED: lisINopril 10 MG (PRINIVIL) TABLET PO ONE (17:15)
[2022-01-30] MEDS ORDERED: HydroCHLOROthiazide CAP/TABLET 12.5 MG TAB PO ONE (17:15)
[2022-01-30] MEDS ORDERED: lisINopril 10 MG (PRINIVIL) TABLET ONE (17:21)
[2022-01-30] MEDS ORDERED: HydroCHLOROthiazide CAP/TABLET 12.5 MG TAB ONE (17:37)
[2022-01-30] MEDS: ENOXAPARIN 40 MG/0.4 ML (LOVENOX) SYR SC SCH (17:41)
[2022-01-30 20:00] VITALS: BP 150/76
[2022-01-30] MEDS: MELATONIN 3 MG TABLET PO PRN (21:08)
[2022-01-30] MEDS: ACETAMINOPHEN 325 MG TABLET PO PRN (23:34)
[2022-01-31 00:30] VITALS: BP 135/81
[2022-01-31] MEDS: inSUlin ASPART (NovoLOG) 1 UNIT/0.01 ML (CHARGE PER UNIT) SC SCH ×4 (05:07→20:51)
[2022-01-31 07:57] VITALS: BP 139/79
[2022-01-31] MEDS: metFORMIN XR 500 MG (GLUCOPHAGE XR) TAB PO SCH (08:34)
[2022-01-31] MEDS: lisINopril 20 MG (PRINIVIL) TABLET PO SCH (08:34)
[2022-01-31] MEDS: ASPIRIN E.C. 81 MG (ECOTRIN) TAB PO SCH (08:34)
[2022-01-31] MEDS: SENNOSIDES 8.6 MG (SENOKOT) TAB PO SCH ×2 (08:35→20:50)
[2022-01-31] MEDS: DOCUSATE SODIUM 100 MG (COLACE) CAP PO SCH ×2 (08:35→20:50)
--- NOTE | 2022-01-31 11:29 | Progress Note - Hospitalist ---
Subjective HPI/CC On Admission Date Seen by Provider: Jan 31, 2022 Kiana Francis is a 71 year old female with PMH HTN, CVA, dementia, who presented with confusion. Her family brought her to the ER because they did not feel they could care for her at home anymore. She has been living with her granddaughter here. She was reportedly being aggressive with them. She is from [place]. She says she wants to go back there, but most of her family from there has . She has a son who still lives there. She does not want to live with her granddaughter here in [place]. She is in her normal state of health. She has no complaints. She is alert and oriented to person, place, and date. Subjective/Events-last exam Pt sleeping when I entered the room. Easily awakens and has no complaints but is quickly back to sleep. RN reports no concerns. Objective Exam Vital Signs Vital Signs Date Time Temp Pulse Resp B/P (MAP) Pulse Ox O2 Delivery O2 Flow Rate FiO2 01/31/22 07:57 36.3 80 20 139/79 (99) 95 Room Air 01/30/22 08:23 0.00 Capillary Refill : Less Than 3 Seconds General Appearance: No Apparent Distress, WD/WN Respiratory: Lungs Clear, No Respiratory Distress Cardiovascular: Regular Rate, Rhythm, No Murmur Neurologic/Psychiatric: Alert, Other (did not answer orientation questions, sleepy) Results/Procedures Lab Patient resulted labs reviewed. Assessment/Plan Assessment and Plan Assess & Plan/Chief Complaint Dementia with behavioral disturbance Family can not care for her at home Social work consulted May need placement or assistance coordinating return to [place] Discussed with SW today, appreciate help HTN Lisinopril HCTZ Hydralazine as needed T2DM Metformin HLD Lipitor History of stroke Aspirin DVT prophylaxis: LAURA Yadav MD Jan 31, 2022 11:28
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
[2022-01-31 15:09] VITALS: BP 137/83
[2022-01-31] MEDS: ENOXAPARIN 40 MG/0.4 ML (LOVENOX) SYR SC SCH (17:43)
[2022-01-31 23:14] VITALS: BP 117/74
[2022-02-01 03:12] VITALS: BP 145/72
[2022-02-01] MEDS: inSUlin ASPART (NovoLOG) 1 UNIT/0.01 ML (CHARGE PER UNIT) SC SCH ×4 (05:11→20:19)
[2022-02-01 07:04] VITALS: BP 140/82
[2022-02-01] MEDS: DOCUSATE SODIUM 100 MG (COLACE) CAP PO SCH ×2 (07:47→20:02)
[2022-02-01] MEDS: ASPIRIN E.C. 81 MG (ECOTRIN) TAB PO SCH (07:47)
[2022-02-01] MEDS: SENNOSIDES 8.6 MG (SENOKOT) TAB PO SCH ×2 (07:47→20:02)
[2022-02-01] MEDS: lisINopril 20 MG (PRINIVIL) TABLET PO SCH (07:47)
[2022-02-01] MEDS: metFORMIN XR 500 MG (GLUCOPHAGE XR) TAB PO SCH (07:51)
--- NOTE | 2022-02-01 14:13 | Progress Note - Hospitalist ---
Subjective HPI/CC On Admission Date Seen by Provider: Feb 01, 2022 Kiana Francis is a 71 year old female with PMH HTN, CVA, dementia, who presented with confusion. Her family brought her to the ER because they did not feel they could care for her at home anymore. She has been living with her granddaughter here. She was reportedly being aggressive with them. She is from [place]. She says she wants to go back there, but most of her family from there has . She has a son who still lives there. She does not want to live with her granddaughter here in [place]. She is in her normal state of health. She has no complaints. She is alert and oriented to person, place, and date. Subjective/Events-last exam Pt reports doing well. She has no complaints and is very pleasant but confused. Was talking to herself when I entered the room. Only request is to get granddaughter's phone number. Objective Exam Vital Signs Vital Signs Date Time Temp Pulse Resp B/P (MAP) Pulse Ox O2 Delivery O2 Flow Rate FiO2 02/01/22 07:04 36.0 68 18 140/82 (101) 93 Room Air 01/30/22 08:23 0.00 Capillary Refill : Less Than 3 Seconds General Appearance: No Apparent Distress, WD/WN Respiratory: Lungs Clear, No Respiratory Distress Cardiovascular: Regular Rate, Rhythm, No Murmur Neurologic/Psychiatric: Alert, Other (oriented to person and place) Results/Procedures Lab Patient resulted labs reviewed. Assessment/Plan Assessment and Plan Assess & Plan/Chief Complaint Dementia with behavioral disturbance Family can not care for her at home Social work consulted May need placement or assistance coordinating return to [place] Discussed with SW- hopeful for transfer to [facility] tomorrow HTN Lisinopril HCTZ Hydralazine as needed T2DM Metformin HLD Lipitor History of stroke Aspirin DVT prophylaxis: LAURA Yadav MD Feb 01, 2022 14:13
[2022-02-01 15:36] VITALS: BP 162/87
[2022-02-01] MEDS: ENOXAPARIN 40 MG/0.4 ML (LOVENOX) SYR SC SCH (17:22)
[2022-02-01] MEDS: MELATONIN 3 MG TABLET PO PRN (20:02)
[2022-02-01] MEDS: ACETAMINOPHEN 325 MG TABLET PO PRN (20:02)
[2022-02-01 23:45] VITALS: BP 119/60
[2022-02-02] MEDS: inSUlin ASPART (NovoLOG) 1 UNIT/0.01 ML (CHARGE PER UNIT) SC SCH ×2 (05:23→11:26)
[2022-02-02 07:53] VITALS: BP 137/80
[2022-02-02] MEDS: ASPIRIN E.C. 81 MG (ECOTRIN) TAB PO SCH (07:56)
[2022-02-02] MEDS: metFORMIN XR 500 MG (GLUCOPHAGE XR) TAB PO SCH (07:56)
[2022-02-02] MEDS: DOCUSATE SODIUM 100 MG (COLACE) CAP PO SCH (07:56)
[2022-02-02] MEDS: SENNOSIDES 8.6 MG (SENOKOT) TAB PO SCH (07:56)
[2022-02-02] MEDS: lisINopril 20 MG (PRINIVIL) TABLET PO SCH (07:56)
--- NOTE | 2022-02-02 10:52 | Discharge Summary ---
Diagnosis/Chief Complaint Date of Admission Jan 29, 2022 at 15:52 Date of Discharge Admission Diagnosis Dementia with behavioral disturbance Primary Care No,Local Physician Discharge Diagnosis (1) Dementia with behavioral disturbance Status: Acute (2) Hypertension Status: Acute (3) T2DM (type 2 diabetes mellitus) Status: Chronic (4) HLD (hyperlipidemia) Status: Chronic (5) History of stroke Status: Chronic (6) Obesity Status: Chronic Discharge Summary Discharge Physical Exam Allergies: Coded Allergies: No Known Drug Allergies (Unverified , 11/01/21) Vitals & I&Os Vital Signs Date Time Temp Pulse Resp B/P (MAP) Pulse Ox O2 Delivery O2 Flow Rate FiO2 02/02/22 09:00 95 Room Air 0.00 02/02/22 07:53 35.9 65 16 137/80 (99) General Appearance: No Apparent Distress Respiratory: Lungs Clear Cardiovascular: Regular Rate, Rhythm, No Murmur Neurologic/Psychiatric: Alert, Oriented x3 Hospital Course Pt was admitted to the hospital due to dementia with behavioral issues. She had had multiple admissions and ER visits due to this and family was unable to care for her. She was screened by [facility] and deemed megha ropriate for admission there. She was discharged in stable condition after and uneventful hospital stay. Labs (last 24 hrs) Laboratory Tests 02/01/22 15:28: Glucometer 182H 02/01/22 20:10: Glucometer 132H 02/02/22 05:16: Glucometer 141H 02/02/22 11:00: SARS-CoV-2 RNA (RT-PCR) Not Detected 02/02/22 11:13: Glucometer 152H Patient resulted labs reviewed. Pending Labs Laboratory Tests 02/02/22 05:16: Glucometer 141 02/02/22 11:00: SARS-CoV-2 RNA (RT-PCR) Not Detected 02/02/22 11:13: Glucometer 152 Discussion & Recommendations Discharge Planning: >30 minutes discharge planning Discharge Home Medications: Active Scripts Active Reported Iprat-Albut 0.5-3(2.5) mg/3 ml (Ipratropium/Albuterol Sulfate) 0.5 Mg-3 Mg (2.5 Mg Base)/3 Ml Ampul.neb 3 Ml IH Q4H PRN Lantus (Insulin Glargine,Hum.rec.anlog) 100 Unit/Ml Vial 14 Unit SQ DAILY Atorvastatin Calcium 40 Mg Tablet 40 Mg PO DAILY Lisinopril-Hctz 10-12.5 mg Tab (Lisinopril/Hydrochlorothiazide) 10 Mg-12.5 Mg Tablet 1 Each PO DAILY Metformin HCl 500 Mg Tablet 500 Mg PO DAILY Instructions to patient/family Please see electronic discharge instructions given to patient. Problem Qualifiers (1) T2DM (type 2 diabetes mellitus): Diabetes mellitus senior care insulin use: with senior care use LAURA QUINTANA MD Feb 02, 2022 10:52
[2022-02-02 14:00] VITALS: BP 137/80
== END 2022-02-02 12:12 | disposition home or self-care (01) ==
LOC: EDUNIT# 21:32 → ER 21:36 → UNDOADMOB 01-29 15:52 → 4TH 01-29 15:52 → UNDODISOB 02-02 12:12
PROVIDERS: ADMIT Internal Medicine; ATTEND Internal Medicine
DX: F03.918 Unspecified dementia, unspecified severity, with other behavioral disturbance (principal); I10 Essential (primary) hypertension; E11.9 Type 2 diabetes mellitus without complications; E78.5 Hyperlipidemia, unspecified; Z86.73 Personal history of transient ischemic attack (TIA), and cerebral infarction without residual deficits; E66.9 Obesity, unspecified; Z68.34 Body mass index [BMI] 34.0-34.9, adult
CPT/HCPCS: 80053; 82947 ×5; 85025; 87636 ×2; 94760 ×2; 96372 ×4; 97162; 99283; G0378; G0480 ×3; 36415; 80320; 80329

== ENCOUNTER 2022-04-01 13:14 | Emergency (ER) | payer MEDICARE, MEDICAID ==
[~2022-04-01] VITALS: Ht 157.5 cm; Wt 90.7 kg
[2022-04-01 14:16] LABS: BILIRUBIN,URINE NEGATIVE (NEGATIVE); CLARITY,URINE CLEAR; COLOR,URINE YELLOW; GLUCOSE, URINE (UA) NEGATIVE (NEGATIVE); KETONES,URINE NEGATIVE (NEGATIVE); LEUKOCYTE ESTERASE ,URINE 1+ (NEGATIVE); NITRITE,URINE NEGATIVE (NEGATIVE); PROTEIN,URINE NEGATIVE (NEGATIVE)
[2022-04-01 14:32] LABS: BACTERIA,URINE MODERATE /HPF; HYALINE CASTS, URINE 0-2 /LPF
--- NOTE | 2022-04-01 14:32 | ED General ---
General Chief Complaint: General Problems/Pain Stated Complaint: BACK AND SIDE PAIN Nursing Triage Note: PT AMBULATE TO TRIAGE WITH C/O HAVING "A SNAKE IN MY STOMACH AND I'D LIKE TO GET IT REMOVED BECAUSE IT'S HURTING BAD". PT REPORTS "A NURSE GAVE ME A PILL THAT HAD THE SNAKE IN IT" WHILE IN THE WAITING ROOM DURING HER LAST ED VISIT. PT C/O BACK AND ABD PAIN. PT REPORTS THAT THE LAST TIME SHE HAD THE SNAKE PUT IN HER IT "CAME ALIVE". History of Present Illness Date Seen by Provider: Apr 01, 2022 Time Seen by Provider: 13:45 Initial Comments 71-year-old female presents for a "snake that has been in her stomach since January." She took a pill in this ED that caused the snake. She would like it removed, as it is causing abdominal pain. Her granddaughter called and reports she was evaluated yesterday for LTC placement. Timing/Duration: Intermittent Severity: Mild Associated Systoms: Denies Symptoms; No Chest Pain, No Cough, No Headaches, No Loss of Appetite, No Malaise, No Nausea/Vomiting, No Seizure, No Shortness of Air, No Weakness Allergies and Home Medications Allergies Coded Allergies: No Known Drug Allergies (Unverified , 11/01/21) Patient Home Medication List Home Medication List Reviewed: Yes Atorvastatin Calcium (Atorvastatin Calcium) 40 Mg Tablet, 40 MG PO DAILY, (Reported) Entered as Reported by: ARNALDO BATES on 01/28/22 1435 Ciprofloxacin HCl (Ciprofloxacin HCl) 500 Mg Tablet, 500 MG PO BID Prescribed by: ISAI CARRILLO on 04/01/22 1541 Insulin Glargine,Hum.rec.anlog (Lantus) 100 Unit/Ml Vial, 14 UNIT SQ DAILY, (Reported) Entered as Reported by: ARNALDO BATES on 01/28/22 1435 Ipratropium/Albuterol Sulfate (Iprat-Albut 0.5-3(2.5) mg/3 ml) 0.5 Mg-3 Mg (2.5 Mg Base)/3 Ml Ampul.neb, 3 ML IH Q4H PRN for SHORTNESS OF BREATH, (Reported) Entered as Reported by: ARNALDO BATES on 01/28/22 1435 Lisinopril/Hydrochlorothiazide (Lisinopril-Hctz 10-12.5 mg Tab) 10 Mg-12.5 Mg Tablet, 1 EACH PO DAILY, (Reported) Entered as Reported by: ARNALDO BATES on 01/28/22 1435 Metformin HCl (Metformin HCl) 500 Mg Tablet, 500 MG PO DAILY, (Reported) Entered as Reported by: ARNALDO BATES on 01/28/22 1435 Review of Systems Review of Systems Constitutional: no symptoms reported, see HPI Gastrointestinal: see HPI, other ("snake in stomach") All Other Systems Reviewed Negative Unless Noted: Yes Past Aybvlkp-Qsyumt-Kmwcio Hx Patient Social History Tobacco Use?: No Smoking Status: Former Smoker Smokeless Tobacco Frequency: Never a User Use of E-Cig and/or Vaping dev: No Use of E-Cig and/or Vaping Angel: Never a User Substance use?: No Alcohol Use?: No Pt feels they are or have been: No Immunizations Up To Date First/Initial COVID19 Vaccinat: 2020 Second COVID19 Vaccination Christian: 2020 Third COVID19 Vaccination Date: 2020 Past Medical History Surgery/Hospitalization HX: ABD SURG, IDDM, HTN, ASTHMA, RECENT STROKE IN SEPTEMBER. DEMENTIA, SCHIZOPHRENIA Surgeries: Yes Abdominal, Joint Replacement Respiratory: No Cardiac: Yes Hypertension Neurological: Yes Dementia, Stroke Reproductive Disorders: No Genitourinary: No Gastrointestinal: No Musculoskeletal: No Endocrine: Yes Diabetes, Insulin dep HEENT: Yes Loss of Vision: Left Cancer: No Psychosocial: Yes Bipolar, Schizophrenia Integumentary: No Family Medical History Reviewed Nursing Family Hx No Pertinent Family Hx Physical Exam Vital Signs Vital Signs - First Documented 04/01/22 04/01/22 13:28 15:59 Temp 36.1 Pulse 80 Resp 17 B/P (MAP) 171/82 (111) Pulse Ox 98 O2 Delivery Room Air Capillary Refill : Less Than 3 Seconds Height, Weight, BMI Height: '" Weight: lbs. oz. kg; 36.00 BMI Method: General Appearance: No Apparent Distress, WD/WN Neck: Full Range of Motion, Normal Inspection, Non Tender, Supple Respiratory: Chest Non Tender, Lungs Clear, Normal Breath Sounds Cardiovascular: Regular Rate, Rhythm, No Edema, No Murmur, Normal Peripheral Pulses Gastrointestinal: Normal Bowel Sounds, Non Tender, Soft; No Distended, No Guarding, No Rebound, No Tenderness; Other (well healed midline incision to abdomen, non-tender. ) Neurologic/Psychiatric: Alert, Oriented x3 (t), Normal Mood/Affect Skin: Normal Color, Warm/Dry Progress/Results/Core Measures Suspected Sepsis SIRS Temperature: Pulse: 80 Respiratory Rate: 17 Blood Pressure 171 /82 Mean: 111 Results/Orders Lab Results Laboratory Tests Test 04/01/22 14:00 Range/Units Urine Color YELLOW Urine Clarity CLEAR Urine pH 5.0 5-9 Urine Specific [place] >=1.030 1.016-1.022 Urine Protein NEGATIVE NEGATIVE Urine Glucose (UA) NEGATIVE NEGATIVE Urine Ketones NEGATIVE NEGATIVE Urine Nitrite NEGATIVE NEGATIVE Urine Bilirubin NEGATIVE NEGATIVE Urine Urobilinogen 0.2 < = 1.0 MG/DL Urine Leukocyte Esterase 1+ H NEGATIVE Urine RBC (Auto) TRACE-I H NEGATIVE Urine RBC NONE /HPF Urine WBC 10-25 H /HPF Urine Squamous Epithelial Cells 5-10 /HPF Urine Crystals NONE /LPF Urine Bacteria MODERATE H /HPF Urine Casts PRESENT /LPF Urine Hyaline Casts 0-2 H /LPF Urine Mucus NEGATIVE /LPF Urine Culture Indicated YES My Orders Orders - ISAI CARRILLO Ua Culture If Indicated (04/01/22 14:09) Abdomen/Kub 1view (04/01/22 14:27) Urine Culture (04/01/22 14:00) Ciprofloxacin Tablet (Cipro Tablet) (04/01/22 15:42) Vital Signs/I&O 04/01/22 04/01/22 13:28 15:59 Temp 36.1 36.4 Pulse 80 76 Resp 17 17 B/P (MAP) 171/82 (111) 134/78 Pulse Ox 98 O2 Delivery Room Air Room Air Capillary Refill : Less Than 3 Seconds Blood Pressure Mean: 111 Diagnostic Imaging Diagonstic Imaging: Xray Plain Films/CT/US/NM/MRI: abdomen Comments NAME: [facility] REC#: [id number] PT STATUS: REG ER : 1950 PHYSICIAN: ISAI CARRILLO ADMIT DATE: 04/01/22/ER Draft Date of Exam:04/01/22 ABDOMEN/KUB 1VIEW INDICATION: Abdomen pain. TECHNIQUE: 2 supine radiographs of the abdomen 2:48 PM CORRELATION STUDY: None FINDINGS: Cholecystectomy clips in the right upper quadrant. There is mild stool throughout the colon. No abnormally dilated bowel to suggest high degree obstruction. A few gas-filled loops of small bowel are present. There is what appears to be a single metallic coil-like density in the right mid abdomen as well as over the left lower quadrant. May be reflective of a mesh repair. Probable calcifications in the pelvis. Advanced degenerative changes of the lumbar spine . IMPRESSION: 1. Nonobstructive appearing bowel gas pattern. Dictated on workstation # [id number] Dict: 04/01/22 1452 Trans: 04/01/[address] [facility] [phone] Interpreted by: OSCAR OLIVER DO Electronically signed by: Reviewed: Reviewed by Me Departure Impression Primary Impression: Dementia Qualified Codes: F03.B0 - Unspecified dementia, moderate, without behavioral disturbance, psychotic disturbance, mood disturbance, and anxiety Additional Impression: UTI (urinary tract infection) Qualified Codes: N30.01 - Acute cystitis with hematuria Disposition: HOME, SELF-CARE Condition: Stable Departure-Patient Inst. Decision time for Depature: 15:10 [place] [facility] [place]IC[place] (PCP) Primary Care Physician Patient Instructions: Urinary Tract Infection, Adult (DC) Add. Discharge Instructions: Take antibiotics as prescribed. Activity as tolerated. Continue with plans for correction. Return to emergency dept for new/urgent healthcare needs. All discharge instructions reviewed with patient and/or family. Voiced understanding. Scripts Ciprofloxacin HCl (Ciprofloxacin HCl) 500 Mg Tablet 500 MG PO BID, #10 TAB Prov: ISAI CARRILLO 04/01/22 ISAI CARRILLO Apr 01, 2022 14:32
--- NOTE | 2022-04-01 14:58 | Diagnostic Imaging Report ---
INDICATION: Abdomen pain. TECHNIQUE: 2 supine radiographs of the abdomen 2:48 PM CORRELATION STUDY: None FINDINGS: Cholecystectomy clips in the right upper quadrant. There is mild stool throughout the colon. No abnormally dilated bowel to suggest high degree obstruction. A few gas-filled loops of small bowel are present. There is what appears to be a single metallic coil-like density in the right mid abdomen as well as over the left lower quadrant. May be reflective of a mesh repair. Probable calcifications in the pelvis. Advanced degenerative changes of the lumbar spine . IMPRESSION: 1. Nonobstructive appearing bowel gas pattern. Dictated by: Dictated on workstation # [id number]
[2022-04-01] MEDS ORDERED: CIPR500T5 PO (15:41)
[2022-04-01] MEDS ORDERED: CIPROFLOXACIN 500 MG (CIPRO) TABLET PO STA (15:42)
[2022-04-01 15:59] VITALS: BP 134/78
== END 2022-04-01 15:57 | disposition home or self-care (01) ==
LOC: EDUNIT# 13:14 → ER 13:15
DX: F03.90 Unspecified dementia, unspecified severity, without behavioral disturbance, psychotic disturbance, mood disturbance, and anxiety (principal); N39.0 Urinary tract infection, site not specified; Z87.891 Personal history of nicotine dependence
CPT/HCPCS: 74018; 81000; 87088

== ENCOUNTER 2022-04-17 19:45 | Emergency (ER) | payer MEDICARE, MEDICAID ==
[~2022-04-17] VITALS: Ht 157 cm; Wt 84.0 kg
[~2022-04-17 19:45] MED LIST changes: +CIPR500T5 PO
--- NOTE | 2022-04-17 20:13 | ED General ---
General Chief Complaint: Back Problems Stated Complaint: BACK/SIDE PAIN Nursing Triage Note: Patient presented to the ER tonight with complaints of bilateral side and low back pain. Patient advised she was recently treated for an infection, Source of Information: Patient, Family (granddaughter) Exam Limitations: Other (dementia) (PRUDENCIO PICKETT) History of Present Illness Date Seen by Provider: Apr 17, 2022 Time Seen by Provider: 20:07 Initial Comments This is a 71yo F with pmhx of dementia, htn, and previous CVA who presents for bilateral low back pain. Pt is a limited historian due to her dementia, granddaughter was called for further history. Pt was sent by granddaughter via uber to the ED this evening. Patient endorses that her low back hurts. Denies any other symptoms. Pt also did not meat pickler her antibiotic from her most recent ED visit for treatment of UTI. Severity: Mild Associated Systoms: Denies Symptoms (PRUDENCIO PICKETT) Initial Comments Patient history and assessment obtained by medical student and this provider. Urine culture from 04/01/22 reviewed, normal pattie present. (ISAI CARRILLO) Allergies and Home Medications Allergies Coded Allergies: No Known Drug Allergies (Unverified , 11/01/21) Patient Home Medication List Home Medication List Reviewed: Yes (ISAI CARRILLO) Atorvastatin Calcium (Atorvastatin Calcium) 40 Mg Tablet, 40 MG PO DAILY, (Reported) Entered as Reported by: ARNALDO BATES on 01/28/22 1435 Ciprofloxacin HCl (Ciprofloxacin HCl) 500 Mg Tablet, 500 MG PO BID Prescribed by: ISAI CARRILLO on 04/01/22 1541 Ciprofloxacin HCl (Ciprofloxacin HCl) 500 Mg Tablet, 500 MG PO BID Prescribed by: ISAI CARRILLO on 04/17/222108 Fluconazole (Diflucan) 150 Mg Tablet, 150 MG PO DAILY Prescribed by: ISAI CARRILLO on 04/17/222108 Insulin Glargine,Hum.rec.anlog (Lantus) 100 Unit/Ml Vial, 14 UNIT SQ DAILY, (Reported) Entered as Reported by: ARANLDO BATES on 01/28/22 1435 Ipratropium/Albuterol Sulfate (Iprat-Albut 0.5-3(2.5) mg/3 ml) 0.5 Mg-3 Mg (2.5 Mg Base)/3 Ml Ampul.neb, 3 ML IH Q4H PRN for SHORTNESS OF BREATH, (Reported) Entered as Reported by: ARNALDO BATES on 01/28/22 143 Lisinopril/Hydrochlorothiazide (Lisinopril-Hctz 10-12.5 mg Tab) 10 Mg-12.5 Mg Tablet, 1 EACH PO DAILY, (Reported) Entered as Reported by: ARNALDO BATES on 01/28/22 143 Metformin HCl (Metformin HCl) 500 Mg Tablet, 500 MG PO DAILY, (Reported) Entered as Reported by: ARNALDO BATES on 01/28/22 1435 Review of Systems Review of Systems Constitutional: no symptoms reported Gastrointestinal: no symptoms reported Genitourinary: no symptoms reported Musculoskeletal: back pain (bilateral low back) Skin: no symptoms reported (PRUDENCIO PICKETT) All Other Systems Reviewed Negative Unless Noted: Yes (ISAI CARRILLO) Past Qxnhgfm-Tgszxh-Rbhdav Hx Patient Social History Tobacco Use?: No Substance use?: No Alcohol Use?: No (PRUDENCIO PICKETT) Immunizations Up To Date First/Initial COVID19 Vaccinat: 2020 Second COVID19 Vaccination Christian: 2020 Third COVID19 Vaccination Date: 2020 (PRUDENCIO PICKETT) Past Medical History Surgery/Hospitalization HX: ABD SURG, IDDM, HTN, ASTHMA, RECENT STROKE IN SEPTEMBER. DEMENTIA, SCHIZOPHRENIA Surgeries: Yes Abdominal, Joint Replacement Respiratory: No Cardiac: Yes Hypertension Neurological: Yes Dementia, Stroke Reproductive Disorders: No Genitourinary: No Gastrointestinal: No Musculoskeletal: No Endocrine: Yes Diabetes, Insulin dep HEENT: Yes Loss of Vision: Left Cancer: No Psychosocial: Yes Bipolar, Schizophrenia Integumentary: No (PRUDENCIO PICKETT) Family Medical History Reviewed Nursing Family Hx (ISAI CARRILLO) No Pertinent Family Hx (PRUDENCIO PICKETT) Physical Exam Vital Signs Vital Signs - First Documented 04/17/22 20:05 Temp 36.1 Pulse 81 Resp 18 B/P (MAP) 155/87 (109) Pulse Ox 94 O2 Delivery Room Air (ISAI CARRILLO) Vital Signs Capillary Refill : Less Than 3 Seconds (PRUDENCIO PICKETT) Height, Weight, BMI Height: '" Weight: lbs. oz. kg; 34.00 BMI Method: General Appearance: No Apparent Distress, WD/WN Cardiovascular: Regular Rate, Rhythm, No Edema, Normal Peripheral Pulses Gastrointestinal: Normal Bowel Sounds, No Organomegaly, No Pulsatile Mass, Soft, Other (Discomfort with lower quadrant palpation, more localized to suprapubic area) Back: Normal Inspection, No Vertebral Tenderness; No CVA Tenderness (L); CVA Tenderness (R) Extremity: Normal Capillary Refill, Normal Inspection, Normal Range of Motion Neurologic/Psychiatric: Alert, No Motor/Sensory Deficits, Normal Mood/Affect Skin: Normal Color, Warm/Dry (PRUDENCIO PICKETT) Progress/Results/Core Measures Suspected Sepsis SIRS Temperature: Pulse: 81 Respiratory Rate: 18 Blood Pressure 155 /87 Mean: 109 (PRUDENCIO PICKETT) Results/Orders Lab Results Laboratory Tests Test 04/17/22 20:24 Range/Units Urine Color YELLOW Urine Clarity CLEAR Urine pH 5.0 5-9 Urine Specific [place] >=1.030 1.016-1.022 Urine Protein TRACE H NEGATIVE Urine Glucose (UA) NEGATIVE NEGATIVE Urine Ketones NEGATIVE NEGATIVE Urine Nitrite NEGATIVE NEGATIVE Urine Bilirubin NEGATIVE NEGATIVE Urine Urobilinogen 0.2 < = 1.0 MG/DL Urine Leukocyte Esterase TRACE H NEGATIVE Urine RBC (Auto) NEGATIVE NEGATIVE Urine RBC NONE /HPF Urine WBC 5-10 H /HPF Urine Squamous Epithelial Cells 5-10 /HPF Urine Crystals NONE /LPF Urine Bacteria MODERATE H /HPF Urine Casts NONE /LPF Urine Mucus SMALL H /LPF Urine Culture Indicated YES (ISAI CARRILLO) My Orders Orders - ISAI CARRILLO Ua Culture If Indicated (04/17/22 19:59) Urine Culture (04/17/22 20:24) Ciprofloxacin Tablet (Cipro Tablet) (04/17/22 21:02) (ISAI CARRILLO) Vital Signs/I&O 04/17/22 04/17/22 20:05 21:12 Temp 36.1 36.2 Pulse 81 80 Resp 18 18 B/P (MAP) 155/87 (109) 151/84 Pulse Ox 94 96 O2 Delivery Room Air Room Air (ISAI CARRILLO) Vital Signs/I&O Capillary Refill : Less Than 3 Seconds (PRUDENCIO PICKETT) Blood Pressure Mean: 109 Departure Impression Primary Impression: Dementia Qualified Codes: F03.90 - Unspecified dementia, unspecified severity, without behavioral disturbance, psychotic disturbance, mood disturbance, and anxiety Additional Impression: UTI (urinary tract infection) Qualified Codes: N30.00 - Acute cystitis without hematuria Disposition: HOME, SELF-CARE Condition: Improved Departure-Patient Inst. Decision time for Depature: 20:40 (ISAI CARRILLO) Referrals: SHASHA MAE DO (PCP/Family) Primary Care Physician Patient Instructions: Urinary Tract Infection, Adult (DC) Add. Discharge Instructions: Increase water intake, 16 oz every 2-3 hours while awake. Alternate Ibuprofen 600 mg and Tylenol 650 mg every 4 hours for fever or pain. Take antibiotic and yeast medication, as prescribed. Follow up with primary care, if not improving or worsens. Return to the emergency dept for new, urgent healthcare needs. All discharge instructions reviewed with patient and/or family. Voiced understanding. Scripts Fluconazole (Diflucan) 150 Mg Tablet 150 MG PO DAILY, #3 TAB 0 Refills take one tabled every 3 days. Prov: ISAI CARRILLO 04/17/22 Ciprofloxacin HCl (Ciprofloxacin HCl) 500 Mg Tablet 500 MG PO BID, #6 TAB 0 Refills Prov: ISAI CARRILLO 04/17/22 patient documentation by medical student reviewed and approved by this provider. (ISAI CARRILLO) ATTENDING PHYSICIAN NOTE: I WAS PHYSICALLY PRESENT ER PHYSICIAN, BUT I WAS NOT INVOLVED IN ANY DECISION MAKING OR ANY CARE OF THIS PATIENT, AND I AM NOT COLLABORATING PHYSICIAN. (JOHNNY PARADA DO) Copy Copies To 1: SHASHA MAE ABRAHAM Apr 17, 2022 20:13 ISAI CARRILLO Apr 17, 2022 20:27 JOHNNY PARADA DO Apr 18, 2022 02:24
[2022-04-17 20:37] LABS: BILIRUBIN,URINE NEGATIVE (NEGATIVE); CLARITY,URINE CLEAR; COLOR,URINE YELLOW; GLUCOSE, URINE (UA) NEGATIVE (NEGATIVE); KETONES,URINE NEGATIVE (NEGATIVE); LEUKOCYTE ESTERASE ,URINE TRACE (NEGATIVE); NITRITE,URINE NEGATIVE (NEGATIVE); PROTEIN,URINE TRACE (NEGATIVE)
[2022-04-17 21:00] LABS: BACTERIA,URINE MODERATE /HPF
[2022-04-17] MEDS ORDERED: CIPROFLOXACIN 500 MG (CIPRO) TABLET PO STA (21:02)
[2022-04-17] MEDS ORDERED: CIPR500T5 PO (21:09)
[2022-04-17] MEDS ORDERED: FLUC150T PO (21:09)
[2022-04-17 21:12] VITALS: BP 151/84
== END 2022-04-17 21:14 | disposition home or self-care (01) ==
LOC: EDUNIT# 19:45 → ER 19:49
DX: N39.0 Urinary tract infection, site not specified (principal); F03.90 Unspecified dementia, unspecified severity, without behavioral disturbance, psychotic disturbance, mood disturbance, and anxiety
CPT/HCPCS: 81000; 87088; 99283

== ENCOUNTER 2022-05-26 16:24 | Emergency (ER) | payer MEDICARE, MEDICAID ==
[~2022-05-26] VITALS: Ht 160 cm; Wt 72.5 kg
--- NOTE | 2022-05-26 16:35 | ED General ---
General Chief Complaint: Altered Mental Status Stated Complaint: AMS History of Present Illness Date Seen by Provider: May 26, 2022 Time Seen by Provider: 16:35 Initial Comments 71-year-old female brought in by EMS. Patient resides at a senior care. She has baseline underlying dementia was sent in because they feel like maybe she is a little bit more confused than normal at her baseline and that she is just not quite as active is normal. They do report that she had fallen this morning but no known injury. No reports of fevers chills nausea or vomiting. Patient is alert to her name which appears to be her baseline has difficulty answering much other questions. History was obtained via EMS and senior care report Allergies and Home Medications Allergies Coded Allergies: No Known Drug Allergies (Unverified , 11/01/21) Patient Home Medication List Home Medication List Reviewed: Yes Atorvastatin Calcium (Atorvastatin Calcium) 40 Mg Tablet, 40 MG PO DAILY, (Reported) Entered as Reported by: ARNALDO BATES on 01/28/22 143 Ciprofloxacin HCl (Ciprofloxacin HCl) 500 Mg Tablet, 500 MG PO BID Prescribed by: ISAI CARRILLO on 04/01/22 1541 Ciprofloxacin HCl (Ciprofloxacin HCl) 500 Mg Tablet, 500 MG PO BID Prescribed by: ISAI CARRILLO on 04/17/222108 Fluconazole (Diflucan) 150 Mg Tablet, 150 MG PO DAILY Prescribed by: ISAI CARRILLO on 04/17/222108 Insulin Glargine,Hum.rec.anlog (Lantus) 100 Unit/Ml Vial, 14 UNIT SQ DAILY, (Reported) Entered as Reported by: ARNALDO BATES on 01/28/22 1435 Ipratropium/Albuterol Sulfate (Iprat-Albut 0.5-3(2.5) mg/3 ml) 0.5 Mg-3 Mg (2.5 Mg Base)/3 Ml Ampul.neb, 3 ML IH Q4H PRN for SHORTNESS OF BREATH, (Reported) Entered as Reported by: ARNALDO BATES on 01/28/22 1435 Lisinopril/Hydrochlorothiazide (Lisinopril-Hctz 10-12.5 mg Tab) 10 Mg-12.5 Mg Tablet, 1 EACH PO DAILY, (Reported) Entered as Reported by: ARNALDO BATES on 01/28/22 1435 Metformin HCl (Metformin HCl) 500 Mg Tablet, 500 MG PO DAILY, (Reported) Entered as Reported by: ARNALDO BATES on 01/28/22 1361 Review of Systems Review of Systems Constitutional: no symptoms reported EENTM: no symptoms reported Respiratory: no symptoms reported Cardiovascular: no symptoms reported Gastrointestinal: no symptoms reported Genitourinary: no symptoms reported Musculoskeletal: no symptoms reported Skin: no symptoms reported Psychiatric/Neurological: See HPI Past Wyscnvr-Ftrkxg-Ypadau Hx Patient Social History Tobacco Use?: No Substance use?: No Alcohol Use?: No Pt feels they are or have been: No Immunizations Up To Date First/Initial COVID19 Vaccinat: 2020 Second COVID19 Vaccination Christian: 2020 Third COVID19 Vaccination Date: 2020 Past Medical History Surgery/Hospitalization HX: ABD SURG, IDDM, HTN, ASTHMA, RECENT STROKE IN SEPTEMBER- r sided weakness. DEMENTIA, SCHIZOPHRENIA, bipolar Surgeries: Yes Abdominal, Joint Replacement Respiratory: No Cardiac: Yes Hypertension Neurological: Yes Dementia, Stroke Reproductive Disorders: No Genitourinary: No Gastrointestinal: No Musculoskeletal: No Endocrine: Yes Diabetes, Insulin dep HEENT: Yes Loss of Vision: Left Cancer: No Psychosocial: Yes Bipolar, Schizophrenia Integumentary: No Family Medical History No Pertinent Family Hx Physical Exam Vital Signs Vital Signs - First Documented 05/26/22 16:31 Temp 36.1 Pulse 79 Resp 18 B/P (MAP) 144/65 (91) Pulse Ox 95 O2 Delivery Room Air Capillary Refill : Height, Weight, BMI Height: '" Weight: lbs. oz. 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 Norm as Tested Skin: Normal Color, Warm/Dry Progress/Results/Core Measures Suspected Sepsis SIRS Temperature: Pulse: Respiratory Rate: Laboratory Tests 05/26/22 16:30: White Blood Count 6.2 Blood Pressure / Mean: Laboratory Tests 05/26/22 16:30: Creatinine 0.82, Platelet Count 165, Total Bilirubin 1.6H Results/Orders Lab Results Laboratory Tests Test 05/26/22 16:29 05/26/22 16:30 05/26/22 16:36 Range/Units Glucometer 84 70-110 MG/DL White Blood Count 6.2 4.3-11.0 10^3/uL Red Blood Count 3.88 3.80-5.11 10^6/uL Hemoglobin 11.7 11.5-16.0 g/dL Hematocrit 36 35-52 % Mean Corpuscular Volume 93 80-99 fL Mean Corpuscular Hemoglobin 30 25-34 pg Mean Corpuscular Hemoglobin Concent 33 32-36 g/dL Red Cell Distribution Width 13.8 10.0-14.5 % Platelet Count 165 130-400 10^3/uL Mean Platelet Volume 10.2 9.0-12.2 fL Immature Granulocyte % (Auto) 0 % Neutrophils (%) (Auto) 72 42-75 % Lymphocytes (%) (Auto) 15 12-44 % Monocytes (%) (Auto) 11 0-12 % Eosinophils (%) (Auto) 1 0-10 % Basophils (%) (Auto) 0 0-10 % Neutrophils # (Auto) 4.5 1.8-7.8 10^3/uL Lymphocytes # (Auto) 1.0 1.0-4.0 10^3/uL Monocytes # (Auto) 0.7 0.0-1.0 10^3/uL Eosinophils # (Auto) 0.1 0.0-0.3 10^3/uL Basophils # (Auto) 0.0 0.0-0.1 10^3/uL Immature Granulocyte # (Auto) 0.0 0.0-0.1 10^3/uL Sodium Level 141 135-145 MMOL/L Potassium Level 3.0 L 3.6-5.0 MMOL/L Chloride Level 100 98-107 MMOL/L Carbon Dioxide Level 30 21-32 MMOL/L Anion Gap 11 5-14 MMOL/L Blood Urea Nitrogen 14 7-18 MG/DL Creatinine 0.82 0.60-1.30 MG/DL Estimat Glomerular Filtration Rate 75 BUN/Creatinine Ratio 17 Glucose Level 110 H 70-105 MG/DL Calcium Level 9.2 8.5-10.1 MG/DL Corrected Calcium 9.4 8.5-10.1 MG/DL Total Bilirubin 1.6 H 0.1-1.0 MG/DL Aspartate Amino Transf (AST/SGOT) 23 5-34 U/L Alanine Aminotransferase (ALT/SGPT) 15 0-55 U/L Alkaline Phosphatase 73 40-136 U/L Total Protein 7.4 6.4-8.2 GM/DL Albumin 3.8 3.2-4.5 GM/DL Urine Color YELLOW Urine Clarity SL CLOUDY Urine pH 5.5 5-9 Urine Specific [place] >=1.030 1.016-1.022 Urine Protein 1+ H NEGATIVE Urine Glucose (UA) NEGATIVE NEGATIVE Urine Ketones 1+ H NEGATIVE Urine Nitrite NEGATIVE NEGATIVE Urine Bilirubin 1+ H NEGATIVE Urine Urobilinogen 0.2 < = 1.0 MG/DL Urine Leukocyte Esterase NEGATIVE NEGATIVE Urine RBC (Auto) 1+ H NEGATIVE Urine RBC 2-5 H /HPF Urine WBC 0-2 /HPF Urine Squamous Epithelial Cells 2-5 /HPF Urine Crystals NONE /LPF Urine Bacteria MODERATE H /HPF Urine Casts PRESENT /LPF Urine Hyaline Casts 5-10 H /LPF Urine Mucus SMALL H /LPF Urine Culture Indicated YES My Orders Orders - YI SALDIVAR DO Ct Head Wo (05/26/22 16:35) Cbc With Automated Diff (05/26/22 16:35) Comprehensive Metabolic Panel (05/26/22 16:35) Ua Culture If Indicated (05/26/22 16:35) Straight Cath For Spec.-Adult (05/26/22 16:35) Urine Culture (05/26/22 16:36) Vital Signs/I&O 05/26/22 16:31 Temp 36.1 Pulse 79 Resp 18 B/P (MAP) 144/65 (91) Pulse Ox 95 O2 Delivery Room Air Capillary Refill : Progress Note : Progress Note Patient's labs were reviewed. Her urine is suggestive of UTI which could be contributing to her symptoms. Patient's physical exam was benign. Patient had a negative head CT. I will prescribe her Keflex for her urinary tract infection x5 days. She is stable and discharged back to the senior care. Diagnostic Imaging Diagonstic Imaging: CT Plain Films/CT/US/NM/MRI: head Comments Date of Exam:05/26/22 CT HEAD WO PROCEDURE: CT head without contrast. TECHNIQUE: Multiple contiguous axial images were obtained through the brain without the use of intravenous contrast. Auto Exposure Controls were utilized during the CT exam to meet ALARA standards for radiation dose reduction. INDICATION: Altered mental status. FINDINGS: The ventricles are normal in size, shape and position. There is decreased density in the periventricular white matter consistent with chronic small vessel ischemic change. There is no mass or hemorrhage. There is no extra-axial fluid collection. IMPRESSION: Chronic ischemic leukoencephalopathy. No acute abnormality is seen. Departure Impression Primary Impression: UTI (urinary tract infection) Qualified Codes: N30.01 - Acute cystitis with hematuria Additional Impression: Dementia Qualified Codes: F03.90 - Unspecified dementia, unspecified severity, without behavioral disturbance, psychotic disturbance, mood disturbance, and anxiety Disposition: HOME, SELF-CARE Condition: Stable Departure-Patient Inst. Referrals: NO,LOCAL PHYSICIAN (PCP/Family) Primary Care Physician Patient Instructions: Urinary Tract Infection, Adult ED, Dementia ED Add. Discharge Instructions: Please follow-up with your primary care provider in 5 days to ensure her urine has cleared. Return to the ER if symptoms continue to worsen All discharge instructions reviewed with patient and/or family. Voiced understanding. Scripts Cephalexin (Cephalexin) 500 Mg Tablet 500 MG PO QID, #20 TAB 0 Refills Prov: YI SALDIVAR DO 05/26/22 YI SALDIVAR DO May 26, 2022 16:35
[2022-05-26 16:44] LABS: BILIRUBIN,URINE 1+ (NEGATIVE); CLARITY,URINE SL CLOUDY; COLOR,URINE YELLOW; GLUCOSE, URINE (UA) NEGATIVE (NEGATIVE); KETONES,URINE 1+ (NEGATIVE); LEUKOCYTE ESTERASE ,URINE NEGATIVE (NEGATIVE); NITRITE,URINE NEGATIVE (NEGATIVE); PH,URINE 5.5 (5-9); PROTEIN,URINE 1+ (NEGATIVE)
[2022-05-26 16:45] LABS: BASOPHILS % (AUTO) 0 % (0-10); EOSINOPHILS # (AUTO) 0.1 10^3/uL (0.0-0.3); EOSINOPHILS % (AUTO) 1 % (0-10); HEMATOCRIT 36 % (35-52); HEMOGLOBIN 11.7 g/dL (11.5-16.0); LYMPHOCYTES % (AUTO) 15 % (12-44); MEAN CORPUSCULAR HEMOGLOBIN 30 pg (25-34); MEAN CORPUSCULAR HGB CONC 33 g/dL (32-36); MEAN CORPUSCULAR VOLUME 93 fL (80-99); MEAN PLATELET VOLUME 10.2 fL (9.0-12.2); MONOCYTES # (AUTO) 0.7 10^3/uL (0.0-1.0); MONOCYTES % (AUTO) 11 % (0-12); NEUTROPHILS # (AUTO) 4.5 10^3/uL (1.8-7.8); NEUTROPHILS % (AUTO) 72 % (42-75); PLATELET COUNT 165 10^3/uL (130-400); WHITE BLOOD COUNT 6.2 10^3/uL (4.3-11.0)
[2022-05-26 16:47] LABS: ALBUMIN 3.8 GM/DL (3.2-4.5)
[2022-05-26 16:49] LABS: CALCIUM 9.2 MG/DL (8.5-10.1)
[2022-05-26 16:50] LABS: TOTAL PROTEIN 7.4 GM/DL (6.4-8.2)
[2022-05-26 16:52] LABS: BILIRUBIN,TOTAL 1.6 MG/DL (0.1-1.0)
[2022-05-26 16:54] LABS: CREATININE SERUM 0.82 MG/DL (0.60-1.30)
[2022-05-26 16:57] LABS: BACTERIA,URINE MODERATE /HPF; WBC,URINE 0-2 /HPF
--- NOTE | 2022-05-26 17:09 | Diagnostic Imaging Report ---
PROCEDURE: CT head without contrast. TECHNIQUE: Multiple contiguous axial images were obtained through the brain without the use of intravenous contrast. Auto Exposure Controls were utilized during the CT exam to meet ALARA standards for radiation dose reduction. INDICATION: Altered mental status. FINDINGS: The ventricles are normal in size, shape and position. There is decreased density in the periventricular white matter consistent with chronic small vessel ischemic change. There is no mass or hemorrhage. There is no extra-axial fluid collection. IMPRESSION: Chronic ischemic leukoencephalopathy. No acute abnormality is seen. Dictated by: Dictated on workstation # [id number]
[2022-05-26] MEDS ORDERED: CEPH500T PO (17:19)
[2022-05-26 19:01] VITALS: BP 178/88
== END 2022-05-26 19:01 | disposition home or self-care (01) ==
LOC: EDUNIT# 16:24 → ER 16:24
DX: F03.90 Unspecified dementia, unspecified severity, without behavioral disturbance, psychotic disturbance, mood disturbance, and anxiety (principal); N39.0 Urinary tract infection, site not specified
CPT/HCPCS: 36415; 51701; 70450; 80053; 81000; 82947; 85025; 87088

== ENCOUNTER 2022-08-06 21:03 | Emergency (ER) | payer MEDICARE, MEDICAID ==
[~2022-08-06] VITALS: Ht 157.5 cm; Wt 77.0 kg
[~2022-08-06 21:03] MED LIST changes: +CEPH500T PO
[2022-08-06 22:34] VITALS: BP 143/84
--- NOTE | 2022-08-06 23:28 | ED Upper Extremity ---
General Chief Complaint: Upper Extremity Stated Complaint: INJ RIGHT SHOULDER Nursing Triage Note: Pt presents with c/o R shoulder pain from a fall approx 2 months ago. Pt has been doing PT and recently stopped, the past 2 days she has been complaining of increased pain. Source: patient Exam Limitations: no limitations History of Present Illness Date Seen by Provider: August 06, 2022 Time Seen by Provider: 23:10 Initial Comments Here with complaint of right shoulder pain from a fall approximately 2 months ago. She was doing physical therapy for several weeks but not for the last 2 weeks. Notes that she is having increased pain. Here with family member who states that the patient has been complaining of worse pain during that timeframe. She thinks that it is more related to nonuse or concerns of rotator but the patient wanted to potentially get an x-ray. Patient states that she is concerned and would like an x-ray. She states that she has pain on abduction and cannot get her arms up to put on clothes. Denies any recent falls. Onset: other (Couple of weeks over the last 2 months) Severity: mild, moderate Method of Injury: unknown Modifying Factors: Improves With Immobilization; Worse With Movement; Improves With Pain Medication (OTC Tylenol/acetaminophen and ibuprofen) Allergies and Home Medications Allergies Coded Allergies: No Known Drug Allergies (Unverified , 11/01/21) Patient Home Medication List Home Medication List Reviewed: Yes Atorvastatin Calcium (Atorvastatin Calcium) 40 Mg Tablet, 40 MG PO DAILY, (Reported) Entered as Reported by: ARNALDO BATES on 01/28/22 1435 Cephalexin (Cephalexin) 500 Mg Tablet, 500 MG PO QID Prescribed by: YI SALDIVAR on 05/26/22 1719 Ciprofloxacin HCl (Ciprofloxacin HCl) 500 Mg Tablet, 500 MG PO BID Prescribed by: ISAI CARRILLO on 04/01/22 1541 Ciprofloxacin HCl (Ciprofloxacin HCl) 500 Mg Tablet, 500 MG PO BID Prescribed by: ISAI CARRILLO on 04/17/222108 Fluconazole (Diflucan) 150 Mg Tablet, 150 MG PO DAILY Prescribed by: ISAI CARRILLO on 04/17/222108 Insulin Glargine,Hum.rec.anlog (Lantus) 100 Unit/Ml Vial, 14 UNIT SQ DAILY, (Reported) Entered as Reported by: ARNALDO BATES on 01/28/22 1435 Ipratropium/Albuterol Sulfate (Iprat-Albut 0.5-3(2.5) mg/3 ml) 0.5 Mg-3 Mg (2.5 Mg Base)/3 Ml Ampul.neb, 3 ML IH Q4H PRN for SHORTNESS OF BREATH, (Reported) Entered as Reported by: ARNALDO BATES on 01/28/22 1435 Lisinopril/Hydrochlorothiazide (Lisinopril-Hctz 10-12.5 mg Tab) 10 Mg-12.5 Mg Tablet, 1 EACH PO DAILY, (Reported) Entered as Reported by: ARNALDO BATES on 01/28/22 1435 Metformin HCl (Metformin HCl) 500 Mg Tablet, 500 MG PO DAILY, (Reported) Entered as Reported by: ARNALDO BATES on 01/28/22 1435 Review of Systems Constitutional: no symptoms reported Respiratory: No short of breath Cardiovascular: No chest pain Musculoskeletal: joint pain; No joint swelling; muscle pain Skin: No rash Past Ljqjztd-Phyhkb-Awuvtv Hx Patient Social History Tobacco Use?: No Immunizations Up To Date First/Initial COVID19 Vaccinat: 2020 Second COVID19 Vaccination Christian: 2020 Third COVID19 Vaccination Date: 2020 Past Medical History Surgery/Hospitalization HX: ABD SURG, IDDM, HTN, ASTHMA, RECENT STROKE IN SEPTEMBER- r sided weakness. DEMENTIA, SCHIZOPHRENIA, bipolar Surgeries: Yes Abdominal, Joint Replacement Respiratory: No Cardiac: Yes Hypertension Neurological: Yes Dementia, Stroke Reproductive Disorders: No Genitourinary: No Gastrointestinal: No Musculoskeletal: No Endocrine: Yes Diabetes, Insulin dep HEENT: Yes Loss of Vision: Left Cancer: No Psychosocial: Yes Bipolar, Schizophrenia Integumentary: No Family Medical History Reviewed Nursing Family Hx No Pertinent Family Hx Physical Exam Vital Signs Vital Signs - First Documented 08/06/22 22:34 Temp 36.9 Pulse 78 Resp 18 B/P (MAP) 143/84 (103) Capillary Refill : Less Than 3 Seconds Height, Weight, BMI Height: '" Weight: lbs. oz. kg; 31.00 BMI Method: General Appearance: WD/WN, no apparent distress Cardiovascular: regular rate, rhythm, no murmur Respiratory: lungs clear, normal breath sounds Shoulder: limited ROM (Right shoulder pain limited on abduction above level of shoulder); No soft tissue tenderness, No swelling Neurologic/Psychiatric: alert, oriented x 3 Skin: normal color, warm/dry Progress/Results/Core Measures Results/Orders My Orders Orders - MARY GOMEZ MD Shoulder, Right, 3 Views (08/06/22 23:22) Vital Signs/I&O 08/06/22 22:34 Temp 36.9 Pulse 78 Resp 18 B/P (MAP) 143/84 (103) Blood Pressure Mean: 103 Progress Progress Note : Progress Note Seen and evaluated. We will get x-ray of the right shoulder. Monitor patient. 2346: I have reviewed the x-ray of the shoulder from today. It does appear that there is likely chronic healing proximal humerus fracture possibly. I do not see acute fracture. Patient has had no recent falls or injuries so believe that this would be a spontaneous fracture. This is likely from previous fall in May. An x-ray was not done at that time to the shoulder as there was no complaints of pain at that time. She apparently had pain afterwards and that is what initiated the physical therapy. She has completed that. I did discuss all of this with the patient's family member. They will follow-up with the orthopedist and I did give her Dr. Seaman's name. She can also follow-up with her doctor. Discharged home with return precautions. Patient and family verbalized understanding instructions and agreement with plan. Diagnostic Imaging Diagonstic Imaging: Xray Plain Films/CT/US/NM/MRI: other Comments Right shoulder x-ray shows what appears to be possible old fracture that is healing. I do not see acute fracture on my interpretation. Pending radiology report. Departure Impression Primary Impression: Injury of right rotator cuff Qualified Codes: S46.001A - Unspecified injury of muscle(s) and tendon(s) of the rotator cuff of right shoulder, initial encounter Disposition: HOME, SELF-CARE Condition: Stable Departure-Patient Inst. Decision time for Depature: 23:27 Referrals: [facility] [place] (PCP/Family) Primary Care Physician JOSEFA SEAMAN MD Patient Instructions: Rotator Cuff Injury (DC) Add. Discharge Instructions: All discharge instructions reviewed with patient and/or family. Voiced understanding. You may take ibuprofen 400 mg every 8 hours as needed for pain. You may also take Tylenol/acetaminophen 1000 mg every 8 hours as needed for pain. You may use [id number] Icy Hot with lidocaine patches or cream, Aspercreme with lidocaine patches or cream, Salonpas with lidocaine patches or cream or similar items to area of concern per package directions. Follow-up with your doctor for recheck and further evaluation. You may follow-up with the orthopedist listed or of your choosing for recheck and further evaluation as well. Return for worse pain, weakness, numbness or other concerns as needed. MARY GOMEZ MD August 06, 2022 23:28
--- NOTE | 2022-08-07 07:11 | Diagnostic Imaging Report ---
INDICATION: Right shoulder pain. COMPARISON: 12/06/2021. DISCUSSION: Three views of the right shoulder were obtained. Moderate degenerative disease noted. No fracture or dislocation. Alignment is anatomic. Soft tissues are unremarkable. IMPRESSION: 1. Moderate right shoulder degenerative disease. No acute abnormality. Dictated by: Dictated on workstation # [id number]
== END 2022-08-06 23:55 | disposition home or self-care (01) ==
LOC: EDUNIT# 21:03 → ER 21:06
DX: S46.001A Unspecified injury of muscle(s) and tendon(s) of the rotator cuff of right shoulder, initial encounter (principal); X58.XXXA Exposure to other specified factors, initial encounter
CPT/HCPCS: 73030

== ENCOUNTER 2022-08-16 20:09 | Emergency (ER) | payer MEDICARE, MEDICAID ==
[~2022-08-16] VITALS: Ht 157.5 cm; Wt 78.0 kg
--- NOTE | 2022-08-16 21:03 | ED GU-Female ---
General Chief Complaint: - Reproductive Stated Complaint: PINK EYE|YEAST INFECTION|BLOOD IN URINE Source: patient Exam Limitations: no limitations History of Present Illness Date Seen by Provider: August 16, 2022 Time Seen by Provider: 20:27 Initial Comments 71-year-old female with dementia presents to the ED with complaints painful left eye, redness, and swelling of eyelid since last night. Denies drainage from eye. Reports mild blurry vision. She also reports vaginal bleeding starting tonight. She denies abdominal pain. Patient is having a lot of difficulty describing her symptoms. Patient is here by herself, but nursing staff was able to contact patient's granddaughter. Patient's granddaughter states that patient is currently being treated for a yeast infection. Allergies and Home Medications Allergies Coded Allergies: No Known Drug Allergies (Unverified , 11/01/21) Patient Home Medication List Home Medication List Reviewed: Yes Atorvastatin Calcium (Atorvastatin Calcium) 40 Mg Tablet, 40 MG PO DAILY, (Reported) Entered as Reported by: ARNALDO BATES on 01/28/22 1435 Cephalexin (Cephalexin) 500 Mg Tablet, 500 MG PO QID Prescribed by: YI SALDIVAR on 05/26/22 1719 Ciprofloxacin HCl (Ciprofloxacin HCl) 500 Mg Tablet, 500 MG PO BID Prescribed by: ISAI CARRILLO on 04/01/22 1541 Ciprofloxacin HCl (Ciprofloxacin HCl) 500 Mg Tablet, 500 MG PO BID Prescribed by: ISAI CARRILLO on 04/17/222108 Fluconazole (Diflucan) 150 Mg Tablet, 150 MG PO DAILY Prescribed by: ISAI CARRILLO on 04/17/222108 Insulin Glargine,Hum.rec.anlog (Lantus) 100 Unit/Ml Vial, 14 UNIT SQ DAILY, (Reported) Entered as Reported by: ARNALDO BATES on 01/28/22 1435 Ipratropium/Albuterol Sulfate (Iprat-Albut 0.5-3(2.5) mg/3 ml) 0.5 Mg-3 Mg (2.5 Mg Base)/3 Ml Ampul.neb, 3 ML IH Q4H PRN for SHORTNESS OF BREATH, (Reported) Entered as Reported by: ARNALDO BATES on 01/28/22 1435 Lisinopril/Hydrochlorothiazide (Lisinopril-Hctz 10-12.5 mg Tab) 10 Mg-12.5 Mg Tablet, 1 EACH PO DAILY, (Reported) Entered as Reported by: ARNALDO BATES on 01/28/22 143 Metformin HCl (Metformin HCl) 500 Mg Tablet, 500 MG PO DAILY, (Reported) Entered as Reported by: ARNALDO BATES on 01/28/22 143 Review of Systems Review of Systems Constitutional: no symptoms reported EENTM: eye pain (Erythema, eyelid swelling) Genitourinary: other (Vaginal bleeding) Past Ocygruc-Qkorvv-Ukedsl Hx Immunizations Up To Date First/Initial COVID19 Vaccinat: 2020 Second COVID19 Vaccination Christian: 2020 Third COVID19 Vaccination Date: 2020 Past Medical History Surgery/Hospitalization HX: ABD SURG, IDDM, HTN, ASTHMA, RECENT STROKE IN SEPTEMBER- r sided weakness. DEMENTIA, SCHIZOPHRENIA, bipolar Surgeries: Yes Abdominal, Joint Replacement Respiratory: No Cardiac: Yes Hypertension Neurological: Yes Dementia, Stroke Reproductive Disorders: No Genitourinary: No Gastrointestinal: No Musculoskeletal: No Endocrine: Yes Diabetes, Insulin dep HEENT: Yes Loss of Vision: Left Cancer: No Psychosocial: Yes Bipolar, Schizophrenia Integumentary: No Family Medical History No Pertinent Family Hx Physical Exam Vital Signs Vital Signs - First Documented 08/16/22 20:16 Temp 36.0 Pulse 82 Resp 14 B/P (MAP) 131/85 (100) Pulse Ox 94 O2 Delivery Room Air Capillary Refill : Height, Weight, BMI Height: '" Weight: lbs. oz. kg; 31.00 BMI Method: General Appearance: WD/WN, no apparent distress HEENT: TMs normal Neck: supple, normal inspection Cardiovascular: regular rate, rhythm Respiratory: lungs clear, normal breath sounds, no respiratory distress, no accessory muscle use Rectal: normal exam, heme positive stool (Stool was light brown in color), hemorrhoids (Possible hemorrhoid palpated) Pelvic: normal external exam, normal adnexa, discharge (White) Extremities: normal range of motion, normal inspection Neurologic/Psychiatric: alert Skin: normal color, warm/dry Progress/Results/Core Measures Suspected Sepsis SIRS Temperature: Pulse: Respiratory Rate: Laboratory Tests 08/16/22 21:16: White Blood Count 5.8 Blood Pressure / Mean: Laboratory Tests 08/16/22 21:16: Creatinine 0.91, Platelet Count 213, Total Bilirubin 1.3H Results/Orders Lab Results Laboratory Tests Test 08/16/22 21:16 Range/Units White Blood Count 5.8 4.3-11.0 10^3/uL Red Blood Count 3.98 3.80-5.11 10^6/uL Hemoglobin 11.8 11.5-16.0 g/dL Hematocrit 37 35-52 % Mean Corpuscular Volume 94 80-99 fL Mean Corpuscular Hemoglobin 30 25-34 pg Mean Corpuscular Hemoglobin Concent 32 32-36 g/dL Red Cell Distribution Width 14.4 10.0-14.5 % Platelet Count 213 130-400 10^3/uL Mean Platelet Volume 10.6 9.0-12.2 fL Immature Granulocyte % (Auto) 0 % Neutrophils (%) (Auto) 68 42-75 % Lymphocytes (%) (Auto) 25 12-44 % Monocytes (%) (Auto) 5 0-12 % Eosinophils (%) (Auto) 2 0-10 % Basophils (%) (Auto) 0 0-10 % Neutrophils # (Auto) 3.9 1.8-7.8 10^3/uL Lymphocytes # (Auto) 1.4 1.0-4.0 10^3/uL Monocytes # (Auto) 0.3 0.0-1.0 10^3/uL Eosinophils # (Auto) 0.1 0.0-0.3 10^3/uL Basophils # (Auto) 0.0 0.0-0.1 10^3/uL Immature Granulocyte # (Auto) 0.0 0.0-0.1 10^3/uL Sodium Level 144 135-145 MMOL/L Potassium Level 3.9 3.6-5.0 MMOL/L Chloride Level 105 98-107 MMOL/L Carbon Dioxide Level 29 21-32 MMOL/L Anion Gap 10 5-14 MMOL/L Blood Urea Nitrogen 15 7-18 MG/DL Creatinine 0.91 0.60-1.30 MG/DL Estimat Glomerular Filtration Rate 67 BUN/Creatinine Ratio 16 Glucose Level 106 H 70-105 MG/DL Calcium Level 9.7 8.5-10.1 MG/DL Corrected Calcium 9.8 8.5-10.1 MG/DL Total Bilirubin 1.3 H 0.1-1.0 MG/DL Aspartate Amino Transf (AST/SGOT) 24 5-34 U/L Alanine Aminotransferase (ALT/SGPT) 15 0-55 U/L Alkaline Phosphatase 62 40-136 U/L Total Protein 7.1 6.4-8.2 GM/DL Albumin 3.9 3.2-4.5 GM/DL My Orders Orders - YESENIA HILARIO APRN Cbc With Automated Diff (08/16/22 20:56) Comprehensive Metabolic Panel (08/16/22 20:56) Wet Prep (08/16/22 20:56) Fecal Occult Bedside (08/16/22 20:56) Rx-Poly/Trimeth Ophth (Rx-Polytrim Ophth (08/16/22 21:08) Vital Signs/I&O 08/16/22 20:16 Temp 36.0 Pulse 82 Resp 14 B/P (MAP) 131/85 (100) Pulse Ox 94 O2 Delivery Room Air Capillary Refill : Progress Note : Progress Note Patient seen and evaluated, resting comfortably in recliner, no acute distress. Based on exam and symptoms, pelvic exam was completed as well as fecal occult blood. No blood noted in vaginal canal. Wet prep obtained. No obvious wounds noted to perineal area. Fecal occult was positive. Stool was light brown in color. Possible internal hemorrhoids palpated. Will obtain CBC and CMP. Left eye appears to be possible conjunctivitis. We will treat with antibiotics. Labs reviewed. CBC grossly normal. CMP grossly normal. Total bilirubin slightly elevated 1.3. Wet prep showed moderate white blood cells, no clue cells, no yeast, no trichomonas. Results discussed with patient. Will discharge with eyedrops for conjunctivitis. Patient instructed to schedule an appointment with surgery regarding positive fecal occult blood. Discharge instructions and return precautions provided. Nursing staff will call granddaughter to provide instructions as well. Departure Impression Primary Impression: Conjunctivitis Additional Impression: Rectal bleeding Disposition: 01 HOME, SELF-CARE Condition: Stable Departure-Patient Inst. Decision time for Depature: 21:46 Referrals: [facility] (PCP/Family) Primary Care Physician MG QUINTANILLA DO Patient Instructions: Conjunctivitis ([facility]) ED, Bloody Stools, Adult (DC) Add. Discharge Instructions: Use the eyedrops 1 drop every 3 hours while awake for the next 7 days. The bleeding was coming from your rectum. You need to follow-up with surgery. Please call them tomorrow to schedule an appointment. Return for severe bleeding, chest pain, shortness of air, dizziness, passing out, inability to see, severe eye pain, or any other new, concerning, or worsening symptoms. All discharge instructions reviewed with patient and/or family. Voiced understanding. YESENIA HILARIO APRN August 16, 2022 21:03
[2022-08-16] MEDS ORDERED: RX-POLY/TRIMETH (POLYTRIM) OP 10 ML BTL OP STA (21:08)
[2022-08-16 21:21] LABS: BASOPHILS % (AUTO) 0 % (0-10); EOSINOPHILS # (AUTO) 0.1 10^3/uL (0.0-0.3); EOSINOPHILS % (AUTO) 2 % (0-10); HEMATOCRIT 37 % (35-52); HEMOGLOBIN 11.8 g/dL (11.5-16.0); LYMPHOCYTES # (AUTO) 1.4 10^3/uL (1.0-4.0); LYMPHOCYTES % (AUTO) 25 % (12-44); MEAN CORPUSCULAR HEMOGLOBIN 30 pg (25-34); MEAN CORPUSCULAR HGB CONC 32 g/dL (32-36); MEAN CORPUSCULAR VOLUME 94 fL (80-99); MEAN PLATELET VOLUME 10.6 fL (9.0-12.2); MONOCYTES # (AUTO) 0.3 10^3/uL (0.0-1.0); MONOCYTES % (AUTO) 5 % (0-12); NEUTROPHILS # (AUTO) 3.9 10^3/uL (1.8-7.8); NEUTROPHILS % (AUTO) 68 % (42-75); PLATELET COUNT 213 10^3/uL (130-400); WHITE BLOOD COUNT 5.8 10^3/uL (4.3-11.0)
[2022-08-16 21:42] LABS: ALBUMIN 3.9 GM/DL (3.2-4.5); BILIRUBIN,TOTAL 1.3 MG/DL (0.1-1.0); CALCIUM 9.7 MG/DL (8.5-10.1); CREATININE SERUM 0.91 MG/DL (0.60-1.30); POTASSIUM 3.9 MMOL/L (3.6-5.0); TOTAL PROTEIN 7.1 GM/DL (6.4-8.2)
[2022-08-16 22:15] VITALS: BP 113/72
== END 2022-08-16 22:15 | disposition home or self-care (01) ==
LOC: EDUNIT# 20:09 → ER 20:11
DX: H10.9 Unspecified conjunctivitis (principal); K92.1 Melena; E11.9 Type 2 diabetes mellitus without complications; Z79.4 Long term (current) use of insulin
CPT/HCPCS: 36415; 80053; 82274; 85025; 87210

== ENCOUNTER 2022-09-09 08:55 | Emergency (ER) | payer MEDICARE, MEDICAID ==
[~2022-09-09] VITALS: Ht 157 cm; Wt 72.0 kg
[2022-09-09 09:24] LABS: BASOPHILS % (AUTO) 1 % (0-10); EOSINOPHILS # (AUTO) 0.2 10^3/uL (0.0-0.3); EOSINOPHILS % (AUTO) 2 % (0-10); HEMATOCRIT 37 % (35-52); LYMPHOCYTES # (AUTO) 2.1 10^3/uL (1.0-4.0); LYMPHOCYTES % (AUTO) 34 % (12-44); MEAN CORPUSCULAR HEMOGLOBIN 30 pg (25-34); MEAN CORPUSCULAR HGB CONC 32 g/dL (32-36); MEAN CORPUSCULAR VOLUME 94 fL (80-99); MEAN PLATELET VOLUME 10.1 fL (9.0-12.2); MONOCYTES # (AUTO) 0.5 10^3/uL (0.0-1.0); MONOCYTES % (AUTO) 8 % (0-12); NEUTROPHILS # (AUTO) 3.5 10^3/uL (1.8-7.8); NEUTROPHILS % (AUTO) 56 % (42-75); PLATELET COUNT 188 10^3/uL (130-400); WHITE BLOOD COUNT 6.4 10^3/uL (4.3-11.0)
--- NOTE | 2022-09-09 09:31 | ED Fall/Injury ---
General Chief Complaint: Trauma-Non Activation Stated Complaint: FALL | HEAD INJ Nursing Triage Note: PT AMB TO [facility] 5 PT HAD FALL LAST PM, PT HAS KNOT ON BACK OF HEAD. PT HAS DEMENTIA. BROUGHT TO ED BY GRANDDAUGHTER. STATES "STATES HAD BLACKOUT YESTERDAY IN SHOWER" NO LOC STATES GRANDDAUGHTER Source: patient, family Exam Limitations: clinical condition (Dementia) History of Present Illness Date Seen by Provider: Sep 09, 2022 Time Seen by Provider: 09:03 Initial Comments This 71-year-old woman is brought to the emergency room by her granddaughter with whom she lives with concerned about fall and head injury yesterday. Patient reportedly fell in the shower and struck her head. They point out a "knot" on the back of her head but this is actually her occipital protuberance. No injury is identified on exam. Patient reportedly did strike the back of her head when she fell. She denies any pain or other injury at this time. Patient notes feeling like she was going to "fall out" but notes that she did not actually lose consciousness. Granddaughter has noted that she has had more weakness and fatigue recently and seems to have exacerbation of her dementia symptoms. She has recently been undergoing a trial off insulin for her diabetes. Patient is pleasantly confused at this time and engages in conversation and collection of history. She does ambulate into the exam room on her own power. She takes Abilify for bipolar disorder. Allergies and Home Medications Allergies Coded Allergies: No Known Drug Allergies (Unverified , 11/01/21) Patient Home Medication List Home Medication List Reviewed: Yes Atorvastatin Calcium (Atorvastatin Calcium) 40 Mg Tablet, 40 MG PO DAILY, (Reported) Entered as Reported by: ARNALDO BATES on 01/28/22 1435 Cefdinir (Cefdinir) 300 Mg Capsule, 300 MG PO BID Prescribed by: KINGSLEY DU on 09/09/22 1214 Cephalexin (Cephalexin) 500 Mg Tablet, 500 MG PO QID Prescribed by: YI SALDIVAR on 05/26/22 1719 Ciprofloxacin HCl (Ciprofloxacin HCl) 500 Mg Tablet, 500 MG PO BID Prescribed by: ISAI CARRILLO on 04/01/22 1541 Ciprofloxacin HCl (Ciprofloxacin HCl) 500 Mg Tablet, 500 MG PO BID Prescribed by: ISAI CARRILLO on 04/17/22 2109 Fluconazole (Diflucan) 150 Mg Tablet, 150 MG PO DAILY Prescribed by: ISAI CARRILLO on 04/17/222108 Insulin Glargine,Hum.rec.anlog (Lantus) 100 Unit/Ml Vial, 14 UNIT SQ DAILY, (Reported) Entered as Reported by: ARNALDO BATES on 01/28/22 143 Ipratropium/Albuterol Sulfate (Iprat-Albut 0.5-3(2.5) mg/3 ml) 0.5 Mg-3 Mg (2.5 Mg Base)/3 Ml Ampul.neb, 3 ML IH Q4H PRN for SHORTNESS OF BREATH, (Reported) Entered as Reported by: ARNALDO BATES on 01/28/22 143 Lisinopril/Hydrochlorothiazide (Lisinopril-Hctz 10-12.5 mg Tab) 10 Mg-12.5 Mg Tablet, 1 EACH PO DAILY, (Reported) Entered as Reported by: ARNALDO BATES on 01/28/22 143 Metformin HCl (Metformin HCl) 500 Mg Tablet, 500 MG PO DAILY, (Reported) Entered as Reported by: ARNALDO BATES on 01/28/22 1435 Review of Systems Review of Systems Constitutional: see HPI Eyes: No Symptoms Reported Ears, Nose, Mouth, Throat: no symptoms reported Respiratory: no symptoms reported Cardiovascular: no symptoms reported Gastrointestinal: no symptoms reported Genitourinary: no symptoms reported Musculoskeletal: see HPI Skin: no symptoms reported Psychiatric/Neurological: See HPI Past Yqfvzof-Hnujry-Pibmyu Hx Patient Social History Tobacco Use?: No Substance use?: No Alcohol Use?: No Pt feels they are or have been: No Immunizations Up To Date First/Initial COVID19 Vaccinat: 2020 Second COVID19 Vaccination Christian: 2020 Third COVID19 Vaccination Date: 2020 Past Medical History Surgery/Hospitalization HX: ABD SURG, IDDM, HTN, ASTHMA, RECENT STROKE IN SEPTEMBER- r sided weakness. DEMENTIA, SCHIZOPHRENIA, bipolar Surgeries: Yes Abdominal, Joint Replacement Respiratory: No Cardiac: Yes Hypertension Neurological: Yes Dementia, Stroke Reproductive Disorders: No Genitourinary: No Gastrointestinal: No Musculoskeletal: No Endocrine: Yes Diabetes, Insulin dep HEENT: Yes Loss of Vision: Left Cancer: No Psychosocial: Yes Bipolar, Schizophrenia Integumentary: No Family Medical History No Pertinent Family Hx Physical Exam Vital Signs Vital Signs - First Documented 09/09/22 09:05 Temp 36.0 Pulse 75 Resp 18 B/P (MAP) 151/80 (103) Pulse Ox 95 Capillary Refill : Less Than 3 Seconds Height, Weight, BMI Height: '" Weight: lbs. oz. kg; 29.00 BMI Method: General Appearance: WD/WN, no apparent distress HEENT: PERRL/EOMI, normal ENT inspection Neck: normal inspection Cardiovascular: regular rate, rhythm, no edema, no murmur Respiratory: lungs clear, normal breath sounds, no respiratory distress Gastrointestinal: non tender, soft Extremities: non-tender, normal inspection Neurologic/Psychiatric: alert, normal mood/affect, other (Pleasantly confused conversation. Patient appears to have a global muscle weakness, right upper extremity slightly weaker than left.) Skin: normal color, warm/dry, cool (Hands) [place] Coma Score Best Eye Response: (4) Open Spontaneously Best Verbal Response: (4) Confused Conversation (confused at baseline with dementia) Best Motor Response: (6) Obeys Commands [place] Total: 14 Progress/Results/Core Measures Results/Orders Lab Results Laboratory Tests Test 09/09/22 09:15 09/09/22 11:12 Range/Units White Blood Count 6.4 4.3-11.0 10^3/uL Red Blood Count 3.99 3.80-5.11 10^6/uL Hemoglobin 12.0 11.5-16.0 g/dL Hematocrit 37 35-52 % Mean Corpuscular Volume 94 80-99 fL Mean Corpuscular Hemoglobin 30 25-34 pg Mean Corpuscular Hemoglobin Concent 32 32-36 g/dL Red Cell Distribution Width 14.5 10.0-14.5 % Platelet Count 188 130-400 10^3/uL Mean Platelet Volume 10.1 9.0-12.2 fL Immature Granulocyte % (Auto) 0 % Neutrophils (%) (Auto) 56 42-75 % Lymphocytes (%) (Auto) 34 12-44 % Monocytes (%) (Auto) 8 0-12 % Eosinophils (%) (Auto) 2 0-10 % Basophils (%) (Auto) 1 0-10 % Neutrophils # (Auto) 3.5 1.8-7.8 10^3/uL Lymphocytes # (Auto) 2.1 1.0-4.0 10^3/uL Monocytes # (Auto) 0.5 0.0-1.0 10^3/uL Eosinophils # (Auto) 0.2 0.0-0.3 10^3/uL Basophils # (Auto) 0.0 0.0-0.1 10^3/uL Immature Granulocyte # (Auto) 0.0 0.0-0.1 10^3/uL Sodium Level 144 135-145 MMOL/L Potassium Level 3.5 L 3.6-5.0 MMOL/L Chloride Level 106 98-107 MMOL/L Carbon Dioxide Level 28 21-32 MMOL/L Anion Gap 10 5-14 MMOL/L Blood Urea Nitrogen 20 H 7-18 MG/DL Creatinine 0.90 0.60-1.30 MG/DL Estimat Glomerular Filtration Rate 68 BUN/Creatinine Ratio 22 Glucose Level 100 70-105 MG/DL Calcium Level 9.4 8.5-10.1 MG/DL Magnesium Level 1.6 1.6-2.4 MG/DL TSH [place] Testing 0.60 0.35-4.94 UIU/ML Urine Color YELLOW Urine Clarity CLOUDY Urine pH 5.5 5-9 Urine Specific [place] >=1.030 1.016-1.022 Urine Protein TRACE H NEGATIVE Urine Glucose (UA) NEGATIVE NEGATIVE Urine Ketones NEGATIVE NEGATIVE Urine Nitrite POSITIVE H NEGATIVE Urine Bilirubin NEGATIVE NEGATIVE Urine Urobilinogen 0.2 < = 1.0 MG/DL Urine Leukocyte Esterase 1+ H NEGATIVE Urine RBC (Auto) TRACE-I H NEGATIVE Urine RBC 2-5 H /HPF Urine WBC 25-50 H /HPF Urine Squamous Epithelial Cells 2-5 /HPF Urine Crystals NONE /LPF Urine Bacteria LARGE H /HPF Urine Casts PRESENT /LPF Urine Hyaline Casts RARE /LPF Urine Mucus MODERATE H /LPF Urine Culture Indicated YES My Orders Orders - KINGSLEY MEREDITH MD Ct Head Wo (09/09/22 09:13) Ed Iv/Invasive Line Start (09/09/22 09:13) Monitor-Rhythm Ecg Trace Only (09/09/22 09:13) Basic Metabolic Panel (09/09/22 09:13) Cbc With Automated Diff (09/09/22 09:13) Magnesium (09/09/22 09:13) Thyroid Analyzer (09/09/22 09:13) Ua Culture If Indicated (09/09/22 09:13) Ekg Tracing (09/09/22 10:07) Orthostatic Vital Signs (Adult (09/09/22 10:07) Urine Culture (09/09/22 11:12) Ceftriaxone Iv/Im (Rocephin Iv/Im) (09/09/22 11:56) Vital Signs/I&O 09/09/22 09/09/22 09/09/22 09:05 10:36 12:22 Temp 36.0 Pulse 75 74 61 76 79 Resp 18 18 B/P (MAP) 151/80 (103) 145/63 (90) 169/88 164/92 (116) 169/88 (115) Pulse Ox 95 95 Blood Pressure Mean: 103 Progress Progress Note #1: Time: : Progress Note Patient was interviewed and examined along with her granddaughter who is the primary historian. Physical exam revealed a pleasantly confused woman who has some generalized weakness, right upper extremity slightly weaker than left. Lab s are being reviewed and CT of the head is being obtained. Progress Note #2: Time: Progress Note Labs have been obtained, reviewed, and interpreted by me in their entirety including CBC, BMP, magnesium, and thyroid analyzer. I have no concerns about these grossly unremarkable labs. Urinalysis is still pending. CT of the head was viewed by me. There were no hemorrhages, fractures or mass lesions appreciated by my interpretation. Radiologist's report was also reviewed as below. Progress Note #3: Progress Note UA was suggestive of UTI by my interpretation. Rocephin was administered. Orthostatic BP measurements were negative for orthostatic hypotension. Patient was discharged with Rx. Discharge instructions were reviewed with patient and granddaughter. Initial ECG Impression Date: Sep 09, 2022 Initial ECG Impression Time: 10:19 Initial ECG Rate: 73 Comment Sinus rhythm with irregular rate (sinus arrhythmia) with no ST elevation or depression. No abnormal intervals or axis deviation. Diagnostic Imaging Diagonstic Imaging: CT Plain Films/CT/US/NM/MRI: head Comments NAME: [facility]EVIN [facility] REC#: [id number] PT STATUS: REG ER : 1950 PHYSICIAN: KINGSLEY MEREDITH MD ADMIT DATE: 09/09/22/ER Draft Date of Exam:09/09/22 CT HEAD WO INDICATION: Fall, injury to head, dementia. TECHNIQUE: Multiple contiguous axial images were obtained through the brain without the use of intravenous contrast. Auto Exposure Controls were utilized during the CT exam to meet ALARA standards for radiation dose reduction. Comparison made to 05/26/2022 FINDINGS: There is no acute intracranial hemorrhage or subdural or epidural collection. There are fairly extensive low-density changes throughout the deep white matter compatible with chronic ischemic change. There is no midline shift or mass effect. There is no acute appearing intracranial abnormality when compared to the prior study. Calvarial windows show no fracture. There are postoperative changes in the right temporal bone. IMPRESSION: Chronic ischemic changes in deep white matter with no acute intracranial abnormality. Dictated on workstation # [id number] Dict: 09/09/22 1003 Trans: 09/09/22 1006 [id number] Interpreted by: MAN TURNER MD Departure Impression Primary Impression: UTI (urinary tract infection) Qualified Codes: N39.0 - Urinary tract infection, site not specified Additional Impressions: Fall on same level Qualified Codes: W18.30XA - Fall on same level, unspecified, initial encounter Lightheadedness Minor head injury Qualified Codes: S09.90XA - Unspecified injury of head, initial encounter Generalized weakness Disposition: 01 HOME, SELF-CARE Condition: Stable Departure-Patient Inst. Decision time for Depature: 12:08 Referrals: [facility] (PCP/Family) Primary Care Physician Patient Instructions: Preventing falls in adults, Urinary Tract Infection, Adult ED Add. Discharge Instructions: Complete antibiotics as prescribed. Follow-up with your primary care provider on Monday to review urine culture results. This will help ensure the antibiotic you are taking is most appropriate for the type of infection you have. Read through the materials attached. Try to make the home as safe as possible to prevent falls. Use a walker and/or cane if necessary to help with ambulation. Encourage plenty of clear liquids to stay well-hydrated. Return to the emergency room if there are worsening symptoms despite following these instructions. All discharge instructions reviewed with patient and/or family. Voiced understanding. Scripts Cefdinir (Cefdinir) 300 Mg Capsule 300 MG PO BID, #14 CAP 0 Refills Prov: KINGSLEY MEREDITH MD 09/09/22 Copy Copies To 1: [facility]/KINGSLEY AVERY MD Sep 09, 2022 09:31
[2022-09-09 09:34] LABS: POTASSIUM 3.5 MMOL/L (3.6-5.0)
[2022-09-09 09:35] LABS: CALCIUM 9.4 MG/DL (8.5-10.1)
[2022-09-09 09:39] LABS: CREATININE SERUM 0.9 MG/DL (0.60-1.30)
[2022-09-09 09:42] LABS: MAGNESIUM 1.6 MG/DL (1.6-2.4)
[2022-09-09 10:02] LABS: TSH (THYROID ANALYZER) 0.6 UIU/ML (0.35-4.94)
--- NOTE | 2022-09-09 10:06 | Diagnostic Imaging Report ---
INDICATION: Fall, injury to head, dementia. TECHNIQUE: Multiple contiguous axial images were obtained through the brain without the use of intravenous contrast. Auto Exposure Controls were utilized during the CT exam to meet ALARA standards for radiation dose reduction. Comparison made to 05/26/2022 FINDINGS: There is no acute intracranial hemorrhage or subdural or epidural collection. There are fairly extensive low-density changes throughout the deep white matter compatible with chronic ischemic change. There is no midline shift or mass effect. There is no acute appearing intracranial abnormality when compared to the prior study. Calvarial windows show no fracture. There are postoperative changes in the right temporal bone. IMPRESSION: Chronic ischemic changes in deep white matter with no acute intracranial abnormality. Dictated by: Dictated on workstation # [id number]
[2022-09-09 10:36] VITALS: BP_SYST 145; BP_SYST 164; BP_SYST 169; BP_DIAS 63; BP_DIAS 88; BP_DIAS 92
[2022-09-09 11:18] LABS: BILIRUBIN,URINE NEGATIVE (NEGATIVE); CLARITY,URINE CLOUDY; COLOR,URINE YELLOW; GLUCOSE, URINE (UA) NEGATIVE (NEGATIVE); KETONES,URINE NEGATIVE (NEGATIVE); LEUKOCYTE ESTERASE ,URINE 1+ (NEGATIVE); NITRITE,URINE POSITIVE (NEGATIVE); PH,URINE 5.5 (5-9); PROTEIN,URINE TRACE (NEGATIVE)
[2022-09-09 11:29] LABS: BACTERIA,URINE LARGE /HPF; HYALINE CASTS, URINE RARE /LPF; WBC,URINE 25-50 /HPF
[2022-09-09] MEDS ORDERED: cefTRIAXone IV/IM 1,000 MG in NS (IVPB) 50 ML IV STA (11:56)
[2022-09-09] MEDS ORDERED: CEFD300C3 PO (12:14)
[2022-09-09 12:22] VITALS: BP 169/88
[2022-09-13] MEDS ORDERED: NITR-65 PO (07:34)
== END 2022-09-09 12:24 | disposition home or self-care (01) ==
LOC: EDUNIT# 08:55 → ER 08:57
DX: S09.90XA Unspecified injury of head, initial encounter (principal); N39.0 Urinary tract infection, site not specified; R53.1 Weakness; F31.9 Bipolar disorder, unspecified; Z79.899 Other long term (current) drug therapy; W18.2XXA Fall in (into) shower or empty bathtub, initial encounter; W22.8XXA Striking against or struck by other objects, initial encounter
CPT/HCPCS: 36415; 51702; 70450; 80048; 81000; 83735; 84443; 85025; 87077; 87088; 87186; 93005; 93041

== ENCOUNTER 2022-10-29 11:49 | Emergency (ER) | payer MEDICARE, MEDICAID ==
[~2022-10-29] VITALS: Ht 157.5 cm; Wt 59.0 kg
[~2022-10-29 11:49] MED LIST changes: +CEFD300C3 PO; +NITR-65 PO
--- NOTE | 2022-10-29 12:04 | ED Head Injury ---
General Stated Complaint: HEAD INJ Source: patient, family Exam Limitations: no limitations History of Present Illness Date Seen by Provider: Oct 29, 2022 Time Seen by Provider: 11:53 Initial Comments 71-year-old female presents with her daughter after she had a fall in the shower this morning striking her head on the faucet. No loss of consciousness. No nausea or vomiting. Her daughter states she has been "a little wobbly on her feet." She is not on any blood thinning medications. The patient complains of no pain at present. All other systems reviewed and negative except documented per HPI. Voice recognition software was used to help create this chart Allergies and Home Medications Allergies Coded Allergies: No Known Drug Allergies (Unverified , 11/01/21) Patient Home Medication List Home Medication List Reviewed: Yes Atorvastatin Calcium (Atorvastatin Calcium) 40 Mg Tablet, 40 MG PO DAILY, (Reported) Entered as Reported by: ARNALDO BATES on 01/28/22 1435 Cefdinir (Cefdinir) 300 Mg Capsule, 300 MG PO BID Prescribed by: KINGSLEY DU on 09/09/22 1214 Cephalexin (Cephalexin) 500 Mg Tablet, 500 MG PO QID Prescribed by: YI SALDIVAR on 05/26/22 1719 Ciprofloxacin HCl (Ciprofloxacin HCl) 500 Mg Tablet, 500 MG PO BID Prescribed by: ISAI CARRILLO on 04/01/22 1541 Ciprofloxacin HCl (Ciprofloxacin HCl) 500 Mg Tablet, 500 MG PO BID Prescribed by: ISAI CARRILLO on 04/17/222108 Fluconazole (Diflucan) 150 Mg Tablet, 150 MG PO DAILY Prescribed by: ISAI CARRILLO on 04/17/222108 Insulin Glargine,Hum.rec.anlog (Lantus) 100 Unit/Ml Vial, 14 UNIT SQ DAILY, ( Reported) Entered as Reported by: ARNALDO BATES on 01/28/22 1435 Ipratropium/Albuterol Sulfate (Iprat-Albut 0.5-3(2.5) mg/3 ml) 0.5 Mg-3 Mg (2.5 Mg Base)/3 Ml Ampul.neb, 3 ML IH Q4H PRN for SHORTNESS OF BREATH, (Reported) Entered as Reported by: ARNALDO BATES on 01/28/22 1435 Lisinopril/Hydrochlorothiazide (Lisinopril-Hctz 10-12.5 mg Tab) 10 Mg-12.5 Mg Tablet, 1 EACH PO DAILY, (Reported) Entered as Reported by: ARNALDO BATES on 01/28/22 1435 Metformin HCl (Metformin HCl) 500 Mg Tablet, 500 MG PO DAILY, (Reported) Entered as Reported by: ARNALDO BATES on 01/28/22 1435 Nitrofurantoin Monohyd/M-Cryst (Macrobid 100 mg Capsule) 100 Mg Capsule, 1 TAB PO BID Prescribed by: KINGSLEY DU on 09/13/22 0734 Review of Systems Review of Systems Constitutional: see HPI Past Zlecevw-Qkuxts-Qekfsa Hx Patient Social History Tobacco Use?: No Use of E-Cig and/or Vaping dev: No Substance use?: No Alcohol Use?: No Immunizations Up To Date First/Initial COVID19 Vaccinat: 2020 Second COVID19 Vaccination Christian: 2020 Third COVID19 Vaccination Date: 2020 Past Medical History Surgery/Hospitalization HX: ABD SURG, IDDM, HTN, ASTHMA, RECENT STROKE IN SEPTEMBER- r sided weakness. DEMENTIA, SCHIZOPHRENIA, bipolar Surgeries: Yes Abdominal, Joint Replacement Respiratory: No Cardiac: Yes Hypertension Neurological: Yes Dementia, Stroke Reproductive Disorders: No Genitourinary: No Gastrointestinal: No Musculoskeletal: No Endocrine: Yes Diabetes, Insulin dep HEENT: Yes Loss of Vision: Left Cancer: No Psychosocial: Yes Bipolar, Schizophrenia Integumentary: No Family Medical History No Pertinent Family Hx Physical Exam Vital Signs Vital Signs - First Documented 10/29/22 11:54 Temp 36.2 Pulse 71 Resp 15 B/P (MAP) 137/86 (103) O2 Delivery Room Air Capillary Refill : Height, Weight, BMI Height: '" Weight: lbs. oz. kg; 29.00 BMI Method: General Appearance: WD/WN, no apparent distress HEENT: PERRL/EOMI, normal ENT inspection, TMs normal, pharynx normal, other (Cephalhematoma posterior occipital region.) Neck: non-tender, full range of motion, supple, normal inspection Cardiovascular: regular rate, rhythm, no murmur Respiratory: chest non-tender, lungs clear, normal breath sounds, no respiratory distress, no accessory muscle use Gastrointestinal: normal bowel sounds, non tender, soft, no organomegaly Psychiatric: alert, oriented x 3 Motor/Sensory: no motor deficit, no sensory deficit Skin: normal color, warm/dry Progress/Results/Core Measures Results/Orders My Orders Orders - RAHEL AMOR DO Ct Head Wo (10/29/22 12:00) Vital Signs/I&O 10/29/22 11:54 Temp 36.2 Pulse 71 Resp 15 B/P (MAP) 137/86 (103) O2 Delivery Room Air Departure Communication (Admissions) CT scan is negative for any acute intracranial abnormalities. I have independently reviewed the images and agree with radiology findings. Patient is alert and oriented and hemodynamically stable. She discharged home with supportive care. Impression Primary Impression: Fall on same level Qualified Codes: W18.30XA - Fall on same level, unspecified, initial encounter Additional Impression: Closed head injury Qualified Codes: S09.90XA - Unspecified injury of head, initial encounter Disposition: HOME, SELF-CARE Condition: Stable Departure-Patient Inst. Referrals: [facility] (PCP/Family) Primary Care Physician Patient Instructions: Minor Head Injury, Adult ED Add. Discharge Instructions: Use ibuprofen and Tylenol as needed for pain. Increase your fluids at home and rest. To the emergency department for any severe concerns. RAHEL AMOR DO Oct 29, 2022 12:04
--- NOTE | 2022-10-29 12:25 | Diagnostic Imaging Report ---
EXAMINATION: CT head without contrast. TECHNIQUE: Multiple contiguous axial images were obtained through the brain without the use of intravenous contrast. All CT scans use one or more of the following dose optimizing techniques: automated exposure control, MA and/or KvP adjustment based on patient size and exam type or iterative reconstruction. HISTORY: Head pain after fall. COMPARISON: 09/09/2022 FINDINGS: The ventricles and sulci are normal. Moderate hypodensities throughout the supratentorial white matter posterior hemispheres. No acute intracranial hemorrhage or abnormal extra-axial fluid collections are present. No hyperdense vessel. The calvarium is intact. Surgical changes of the right mastoid air cells. The visualized paranasal sinuses are clear. The orbits are normal. IMPRESSION: 1. No acute intracranial abnormality. 2. Chronic microangiopathy. Dictated by: Dictated on workstation # [id number]
[2022-10-29 13:24] VITALS: BP 119/72
== END 2022-10-29 13:24 | disposition home or self-care (01) ==
LOC: EDUNIT# 11:49 → ER 11:51
DX: S09.90XA Unspecified injury of head, initial encounter (principal); E11.9 Type 2 diabetes mellitus without complications; S00.03XA Contusion of scalp, initial encounter; Z79.4 Long term (current) use of insulin; W18.2XXA Fall in (into) shower or empty bathtub, initial encounter; W22.8XXA Striking against or struck by other objects, initial encounter
CPT/HCPCS: 70450